=== PATIENT | male | born 1950 | race Caucasian/White ===

== ENCOUNTER 2020-07-02 08:10 | Outpatient (CLI) | payer MEDICARE | END 2020-07-02 08:11 | disposition home or self-care (01) | LOC: CSHWCC 08:10 | PROVIDERS: ATTEND Nurse Practitioner Family | DX: I87.332 Chronic venous hypertension (idiopathic) with ulcer and inflammation of left lower extremity (principal); L97.229 Non-pressure chronic ulcer of left calf with unspecified severity; L97.829 Non-pressure chronic ulcer of other part of left lower leg with unspecified severity; R60.0 Localized edema; E11.40 Type 2 diabetes mellitus with diabetic neuropathy, unspecified; I87.2 Venous insufficiency (chronic) (peripheral); L03.818 Cellulitis of other sites; B96.5 Pseudomonas (aeruginosa) (mallei) (pseudomallei) as the cause of diseases classified elsewhere | CPT/HCPCS: 97139; G0463; 99213 ==

== ENCOUNTER 2020-07-16 09:02 | Outpatient (CLI) | payer MEDICARE | END 2020-07-16 09:03 | disposition home or self-care (01) | LOC: CSHWCC 09:02 | PROVIDERS: ATTEND Nurse Practitioner Family | DX: I87.332 Chronic venous hypertension (idiopathic) with ulcer and inflammation of left lower extremity (principal); L97.229 Non-pressure chronic ulcer of left calf with unspecified severity; L97.829 Non-pressure chronic ulcer of other part of left lower leg with unspecified severity; E11.40 Type 2 diabetes mellitus with diabetic neuropathy, unspecified; E66.01 Morbid (severe) obesity due to excess calories; I87.2 Venous insufficiency (chronic) (peripheral); I89.0 Lymphedema, not elsewhere classified; L03.818 Cellulitis of other sites; B96.5 Pseudomonas (aeruginosa) (mallei) (pseudomallei) as the cause of diseases classified elsewhere; L60.1 Onycholysis; R60.0 Localized edema | CPT/HCPCS: 29581; 97139; G0463; 99213 ==

== ENCOUNTER 2020-07-30 08:21 | Outpatient (CLI) | payer MEDICARE | END 2020-07-30 08:22 | disposition home or self-care (01) | LOC: CSHWCC 08:21 | PROVIDERS: ATTEND Nurse Practitioner Family | DX: I87.332 Chronic venous hypertension (idiopathic) with ulcer and inflammation of left lower extremity (principal); L97.229 Non-pressure chronic ulcer of left calf with unspecified severity; L97.829 Non-pressure chronic ulcer of other part of left lower leg with unspecified severity; R60.0 Localized edema; E11.40 Type 2 diabetes mellitus with diabetic neuropathy, unspecified; I87.2 Venous insufficiency (chronic) (peripheral); L03.818 Cellulitis of other sites; B96.5 Pseudomonas (aeruginosa) (mallei) (pseudomallei) as the cause of diseases classified elsewhere | CPT/HCPCS: 29581; 99213; G0463 ==

== ENCOUNTER 2020-08-04 12:28 | Outpatient (CLI) | payer MEDICARE | END 2020-08-04 12:29 | disposition home or self-care (01) | LOC: CSHWCC 12:28 | PROVIDERS: ATTEND Nurse Practitioner Family | DX: I87.332 Chronic venous hypertension (idiopathic) with ulcer and inflammation of left lower extremity (principal); L97.229 Non-pressure chronic ulcer of left calf with unspecified severity; L97.829 Non-pressure chronic ulcer of other part of left lower leg with unspecified severity; R60.0 Localized edema; E11.40 Type 2 diabetes mellitus with diabetic neuropathy, unspecified; I87.2 Venous insufficiency (chronic) (peripheral); L03.818 Cellulitis of other sites; B96.5 Pseudomonas (aeruginosa) (mallei) (pseudomallei) as the cause of diseases classified elsewhere | CPT/HCPCS: 29581; 97139; G0463; 99213 ==

== ENCOUNTER 2020-08-06 08:25 | Outpatient (CLI) | payer MEDICARE | END 2020-08-06 08:26 | disposition home or self-care (01) | LOC: CSHWCC 08:25 | PROVIDERS: ATTEND Nurse Practitioner Family | DX: I87.332 Chronic venous hypertension (idiopathic) with ulcer and inflammation of left lower extremity (principal); L97.229 Non-pressure chronic ulcer of left calf with unspecified severity; L97.829 Non-pressure chronic ulcer of other part of left lower leg with unspecified severity; R60.0 Localized edema; E11.40 Type 2 diabetes mellitus with diabetic neuropathy, unspecified; I87.2 Venous insufficiency (chronic) (peripheral); L03.818 Cellulitis of other sites; B96.5 Pseudomonas (aeruginosa) (mallei) (pseudomallei) as the cause of diseases classified elsewhere | CPT/HCPCS: 29581; 97139; G0463; 99213 ==

== ENCOUNTER 2020-08-08 13:06 | Outpatient (CLI) | payer MEDICARE | END 2020-08-08 13:07 | disposition home or self-care (01) | LOC: CSHWCC 13:06 | PROVIDERS: ATTEND Nurse Practitioner Family | DX: I87.332 Chronic venous hypertension (idiopathic) with ulcer and inflammation of left lower extremity (principal); E11.622 Type 2 diabetes mellitus with other skin ulcer; L97.229 Non-pressure chronic ulcer of left calf with unspecified severity; L97.829 Non-pressure chronic ulcer of other part of left lower leg with unspecified severity; E11.40 Type 2 diabetes mellitus with diabetic neuropathy, unspecified; I87.2 Venous insufficiency (chronic) (peripheral); L03.818 Cellulitis of other sites; B96.5 Pseudomonas (aeruginosa) (mallei) (pseudomallei) as the cause of diseases classified elsewhere; R60.0 Localized edema | CPT/HCPCS: 29581; 97139; G0463; 99213 ==

== ENCOUNTER 2020-08-13 09:00 | Outpatient (CLI) | payer MEDICARE | END 2020-08-13 09:01 | disposition home or self-care (01) | LOC: CSHWCC 09:00 | PROVIDERS: ATTEND Nurse Practitioner Family | DX: I87.332 Chronic venous hypertension (idiopathic) with ulcer and inflammation of left lower extremity (principal); I87.331 Chronic venous hypertension (idiopathic) with ulcer and inflammation of right lower extremity; L97.812 Non-pressure chronic ulcer of other part of right lower leg with fat layer exposed; L97.222 Non-pressure chronic ulcer of left calf with fat layer exposed; L97.822 Non-pressure chronic ulcer of other part of left lower leg with fat layer exposed; I89.0 Lymphedema, not elsewhere classified; L03.818 Cellulitis of other sites; B96.5 Pseudomonas (aeruginosa) (mallei) (pseudomallei) as the cause of diseases classified elsewhere; L60.1 Onycholysis; E66.01 Morbid (severe) obesity due to excess calories; I87.2 Venous insufficiency (chronic) (peripheral) | CPT/HCPCS: 29581; 99214; G0463 ==

== ENCOUNTER 2020-08-20 07:37 | Outpatient (CLI) | payer MEDICARE | END 2020-08-20 07:38 | disposition home or self-care (01) | LOC: CSHWCC 07:37 | PROVIDERS: ATTEND Nurse Practitioner Family | DX: I87.332 Chronic venous hypertension (idiopathic) with ulcer and inflammation of left lower extremity (principal); L97.229 Non-pressure chronic ulcer of left calf with unspecified severity; L97.829 Non-pressure chronic ulcer of other part of left lower leg with unspecified severity; I87.2 Venous insufficiency (chronic) (peripheral); R60.0 Localized edema; L03.818 Cellulitis of other sites; E11.40 Type 2 diabetes mellitus with diabetic neuropathy, unspecified; B96.5 Pseudomonas (aeruginosa) (mallei) (pseudomallei) as the cause of diseases classified elsewhere | CPT/HCPCS: 29581; 99214; G0463 ==

== ENCOUNTER 2020-08-27 09:54 | Outpatient (CLI) | payer MEDICARE | END 2020-08-27 09:55 | disposition home or self-care (01) | LOC: CSHWCC 09:54 | PROVIDERS: ATTEND Nurse Practitioner Family | DX: I87.332 Chronic venous hypertension (idiopathic) with ulcer and inflammation of left lower extremity (principal); I87.311 Chronic venous hypertension (idiopathic) with ulcer of right lower extremity; I87.2 Venous insufficiency (chronic) (peripheral); E11.622 Type 2 diabetes mellitus with other skin ulcer; L97.222 Non-pressure chronic ulcer of left calf with fat layer exposed; L97.212 Non-pressure chronic ulcer of right calf with fat layer exposed; L97.822 Non-pressure chronic ulcer of other part of left lower leg with fat layer exposed; E11.40 Type 2 diabetes mellitus with diabetic neuropathy, unspecified; E66.01 Morbid (severe) obesity due to excess calories; I89.0 Lymphedema, not elsewhere classified; L03.818 Cellulitis of other sites; B96.5 Pseudomonas (aeruginosa) (mallei) (pseudomallei) as the cause of diseases classified elsewhere; L60.1 Onycholysis; R60.0 Localized edema; Z91.128 Patient's intentional underdosing of medication regimen for other reason | CPT/HCPCS: 29581; 97139 ×2; G0463 ×2; 99211; 99213 ==

== ENCOUNTER 2020-09-11 09:14 | Outpatient (CLI) | payer MEDICARE | END 2020-09-11 09:15 | disposition home or self-care (01) | LOC: CSHWCC 09:14 | PROVIDERS: ATTEND Nurse Practitioner Family | DX: I87.332 Chronic venous hypertension (idiopathic) with ulcer and inflammation of left lower extremity (principal); I87.2 Venous insufficiency (chronic) (peripheral); E11.622 Type 2 diabetes mellitus with other skin ulcer; L97.229 Non-pressure chronic ulcer of left calf with unspecified severity; L97.829 Non-pressure chronic ulcer of other part of left lower leg with unspecified severity; E11.40 Type 2 diabetes mellitus with diabetic neuropathy, unspecified; L03.818 Cellulitis of other sites; B96.5 Pseudomonas (aeruginosa) (mallei) (pseudomallei) as the cause of diseases classified elsewhere; R60.0 Localized edema | CPT/HCPCS: 29581; 97139; G0463; 99213 ==

== ENCOUNTER 2020-11-27 08:37 | Outpatient (CLI) | payer MEDICARE | END 2020-11-27 08:38 | disposition home or self-care (01) | LOC: CSHWCC 08:37 | PROVIDERS: ATTEND Nurse Practitioner Family | DX: I87.332 Chronic venous hypertension (idiopathic) with ulcer and inflammation of left lower extremity (principal); I87.311 Chronic venous hypertension (idiopathic) with ulcer of right lower extremity; I87.2 Venous insufficiency (chronic) (peripheral); L97.812 Non-pressure chronic ulcer of other part of right lower leg with fat layer exposed; L97.222 Non-pressure chronic ulcer of left calf with fat layer exposed; L97.822 Non-pressure chronic ulcer of other part of left lower leg with fat layer exposed; E11.40 Type 2 diabetes mellitus with diabetic neuropathy, unspecified; I89.0 Lymphedema, not elsewhere classified; R60.0 Localized edema; L03.818 Cellulitis of other sites; B96.5 Pseudomonas (aeruginosa) (mallei) (pseudomallei) as the cause of diseases classified elsewhere; L60.1 Onycholysis; E66.01 Morbid (severe) obesity due to excess calories; Z91.128 Patient's intentional underdosing of medication regimen for other reason | CPT/HCPCS: 29581; 99213; G0463 ==

== ENCOUNTER 2020-12-05 08:23 | Outpatient (CLI) | payer MEDICARE | END 2020-12-05 08:24 | disposition home or self-care (01) | LOC: CSHWCC 08:23 | PROVIDERS: ATTEND Nurse Practitioner Family | DX: I87.311 Chronic venous hypertension (idiopathic) with ulcer of right lower extremity (principal); L97.812 Non-pressure chronic ulcer of other part of right lower leg with fat layer exposed; I87.332 Chronic venous hypertension (idiopathic) with ulcer and inflammation of left lower extremity; L97.222 Non-pressure chronic ulcer of left calf with fat layer exposed; L97.822 Non-pressure chronic ulcer of other part of left lower leg with fat layer exposed; L03.818 Cellulitis of other sites; B96.5 Pseudomonas (aeruginosa) (mallei) (pseudomallei) as the cause of diseases classified elsewhere; L60.1 Onycholysis; R60.0 Localized edema; E11.40 Type 2 diabetes mellitus with diabetic neuropathy, unspecified; E66.01 Morbid (severe) obesity due to excess calories; I87.2 Venous insufficiency (chronic) (peripheral); I89.0 Lymphedema, not elsewhere classified; Z91.128 Patient's intentional underdosing of medication regimen for other reason | CPT/HCPCS: 29581; 99213; G0463 ==

== ENCOUNTER 2020-12-12 08:47 | Outpatient (CLI) | payer MEDICARE | END 2020-12-12 08:48 | disposition home or self-care (01) | LOC: CSHWCC 08:47 | PROVIDERS: ATTEND Nurse Practitioner Family | DX: I87.332 Chronic venous hypertension (idiopathic) with ulcer and inflammation of left lower extremity (principal); I87.311 Chronic venous hypertension (idiopathic) with ulcer of right lower extremity; I87.2 Venous insufficiency (chronic) (peripheral); E11.622 Type 2 diabetes mellitus with other skin ulcer; L97.812 Non-pressure chronic ulcer of other part of right lower leg with fat layer exposed; L97.822 Non-pressure chronic ulcer of other part of left lower leg with fat layer exposed; L03.818 Cellulitis of other sites; E11.40 Type 2 diabetes mellitus with diabetic neuropathy, unspecified; B96.5 Pseudomonas (aeruginosa) (mallei) (pseudomallei) as the cause of diseases classified elsewhere; L60.1 Onycholysis; R60.0 Localized edema; E66.01 Morbid (severe) obesity due to excess calories; Z91.128 Patient's intentional underdosing of medication regimen for other reason | CPT/HCPCS: 29581; 97139; G0463; 99214 ==

== ENCOUNTER 2021-01-22 10:32 | Outpatient (CLI) | payer MEDICARE | END 2021-01-22 10:33 | disposition home or self-care (01) | LOC: CSHWCC 10:32 | PROVIDERS: ATTEND Nurse Practitioner Family | DX: I87.333 Chronic venous hypertension (idiopathic) with ulcer and inflammation of bilateral lower extremity (principal); E11.621 Type 2 diabetes mellitus with foot ulcer; E11.622 Type 2 diabetes mellitus with other skin ulcer; L97.812 Non-pressure chronic ulcer of other part of right lower leg with fat layer exposed; L97.222 Non-pressure chronic ulcer of left calf with fat layer exposed; L97.422 Non-pressure chronic ulcer of left heel and midfoot with fat layer exposed; L97.822 Non-pressure chronic ulcer of other part of left lower leg with fat layer exposed; I89.0 Lymphedema, not elsewhere classified; E11.40 Type 2 diabetes mellitus with diabetic neuropathy, unspecified; L03.818 Cellulitis of other sites; R60.0 Localized edema; B96.5 Pseudomonas (aeruginosa) (mallei) (pseudomallei) as the cause of diseases classified elsewhere; L60.1 Onycholysis; E66.01 Morbid (severe) obesity due to excess calories; Z91.128 Patient's intentional underdosing of medication regimen for other reason | CPT/HCPCS: 29581; 97139; G0463; 99214 ==

== ENCOUNTER 2021-01-27 15:50 | Inpatient (IN) | payer MEDICARE ==
[2021-01-27] MEDS ORDERED: Cefepime 2 GM VIAL ONE (16:36)
[2021-01-27 16:43] LABS: #Basophils 0.1 10x3/uL (0.0-0.2); #Eosinphils 0.3 10x3/uL (0.0-0.5); #Monocytes 0.6 10x3/uL (0.0-1.1); #Neutrophils 7.3 10x3/uL (1.5-8.4); %Basophils 0.6 % (0.0-2.0); %Lymphocytes 13.9 % (18.0-47.0); %Monocytes 6.3 % (0.0-10.0); %Neutrophils 75.7 % (40.0-75.0); Hemoglobin 11.8 g/dL (13.5-17.5); Mean Corpuscular HGB CONC 32.2 g/dL (32.0-36.0); Mean Corpuscular Hemoglobin 27.8 pg (27.0-33.0); Mean Corpuscular Volume 86.4 fl (81.2-95.1); Mean Platelet Volume 9.4 fl (7.4-10.4); Platelet Count 622 10x3/uL (150-450); RBC Distribution Width 14.1 % (11.5-14.5); Red Blood Cell (RBC) Count 4.25 10x6/uL (4.32-5.72); White Blood Cell (WBC) Count 9.7 10x3/uL (3.5-10.5)
[2021-01-27 16:56] LABS: ALT (SGPT) 42 U/L (8-55); AST (SGOT) 52 U/L (5-34); Albumin 3.6 g/dL (3.4-4.8); Alkaline Phosphatase 75 U/L (40-110); Anion Gap 17 mmol/L (10-20); BUN (Urea Nitrogen) 28 mg/dL (8.4-25.7); Bilirubin, Total 0.3 mg/dL (0.2-1.2); Calc. Creatinine Clearance 0 mL/min (70-130); Calcium 9.4 mg/dL (7.8-10.44); Carbon Dioxide 22 mmol/L (23-31); Chloride 102 mmol/L (98-107); Globulin 4.6 g/dL (2.4-3.5); Glucose 73 mg/dL (83-110); Potassium 4.1 mmol/L (3.5-5.1); Protein, Total 8.2 g/dL (5.8-8.1); Sodium 137 mmol/L (136-145)
[2021-01-27] MEDS ORDERED: Morphine 4 MG/ML VIAL ONE (18:36)
[2021-01-27] MEDS ORDERED: Bisacodyl 5 MG TAB PO PRN (19:24)
[2021-01-27] MEDS ORDERED: Zolpidem Tartrate 5 MG TAB PO PRN (19:24)
[2021-01-27] MEDS ORDERED: Dextrose 5% in Water 1,000 ML IV PRN (19:24)
[2021-01-27] MEDS ORDERED: HumaLOG 300 UNITS/3 ML VIAL SC PRN (19:24)
[2021-01-27] MEDS ORDERED: Senokot S 8.6-50 MG TAB PO PRN (19:24)
[2021-01-27] MEDS ORDERED: Guaifenesin DM 100-10/5 ML UDCUP PO PRN (19:24)
[2021-01-27] MEDS ORDERED: Calcium Carbonate 500 MG ChewTAB PO PRN (19:24)
[2021-01-27] MEDS ORDERED: Ondansetron PF 4 MG/2 ML Vial IVP PRN (19:24)
[2021-01-27] MEDS ORDERED: Gabapentin 300 MG CAP PO SCH (21:45)
[2021-01-27] MEDS ORDERED: Morphine ER 15 MG TAB PO SCH (21:45)
[2021-01-27] MEDS ORDERED: traZODone HCl 50 MG TAB PO SCH (21:45)
[2021-01-27 21:47] VITALS: BMI 44.6
[2021-01-27] MEDS ORDERED: FLU VACC QS2021-22(65YR UP)/PF 240 MCG/0.7 ML SYRINGE IM ONE (22:15)
[2021-01-27] MEDS ORDERED: VANCOMYCIN 1.75 GM/350 ML BAG 1.75 GM in Premix Bag 1 BAG IVPB SCH (22:30)
[2021-01-28] MEDS: Dextrose 50% Abboject 50 ML SYRINGE SLOW IVP PRN ×2 (00:41→17:01)
[2021-01-28] MEDS ORDERED: Haloperidol Lactate 5 MG/ML VIAL ONE (01:04)
[2021-01-28] MEDS ORDERED: Haloperidol Lactate 5 MG/ML VIAL IM SCH (01:15)
[2021-01-28 01:34] LABS: Bilirubin Neg (Negative); Blood, Urine Negative (Negative); Clarity Clear (Clear); Glucose, Urine (Dipstick) Normal (Negative); Ketone, Urine Negative (Negative); Leukocyte Negative (Negative); Nitrite Negative (Negative); Protein, Urine (Dipstick) 15 mg/dl (Neg-Trace); Specific Gravity, Urine 1.015 (1.002-1.036); Urobilinogen Normal mg/dL (Less than 2)
[2021-01-28] MEDS: Acetaminophen 325 MG TAB PO PRN (01:37)
[2021-01-28 01:59] LABS: Bacteria/HPF None Seen HPF (None Seen); RBC/HPF 0-3 HPF (0-3); Squamous Epithelial None Seen HPF (0-3); WBC/HPF None Seen HPF (0-3)
[2021-01-28 05:20] LABS: #Eosinphils 0.3 10x3/uL (0.0-0.5); #Monocytes 0.6 10x3/uL (0.0-1.1); #Neutrophils 7.3 10x3/uL (1.5-8.4); %Basophils 0.5 % (0.0-2.0); %Eosinophils 3.4 % (0.0-6.0); %Lymphocytes 7.3 % (18.0-47.0); %Monocytes 6.3 % (0.0-10.0); %Neutrophils 81.9 % (40.0-75.0); Hemoglobin 10.1 g/dL (13.5-17.5); Mean Corpuscular HGB CONC 32.4 g/dL (32.0-36.0); Mean Corpuscular Hemoglobin 27.5 pg (27.0-33.0); Mean Platelet Volume 9.5 fl (7.4-10.4); Platelet Count 545 10x3/uL (150-450); RBC Distribution Width 14.4 % (11.5-14.5); Red Blood Cell (RBC) Count 3.67 10x6/uL (4.32-5.72); White Blood Cell (WBC) Count 8.9 10x3/uL (3.5-10.5)
[2021-01-28 07:48] LABS: Base Excess (BEa) -1.2 mEq/L (-2.0 to +3.0); CO2 Tension 36.2 mmHg (35.0-45.0); Calcium, Ionized (arterial) 1.15 mmol/L (1.12-1.30); Carboxyhemoglobin (COHb) 0.1 gm% (0.0-3.0); Hemoglobin (Hb) 11.2 g/dL (14.0-18.0); O2 Tension (PaO2), arterial 72.9 mmHg (> 70.0); Potassium - ABG Lab 4.2 mmol/L (3.70-5.30); Puncture Site RRA; pH, Arterial 7.42 (7.35-7.45)
[2021-01-28] MEDS ORDERED: Glimepiride 2 MG TAB PO SCH (08:00)
[2021-01-28] MEDS: Lantus 1000 UNITS/10 ML VIAL SC SCH (09:08)
[2021-01-28] MEDS: Morphine 4 MG/ML VIAL SLOW IVP PRN (09:14)
[2021-01-28] MEDS: Morphine ER 15 MG TAB PO SCH ×2 (09:19→20:43)
[2021-01-28] MEDS: Multivit, Therapeutic 1 TAB PO SCH (09:20)
[2021-01-28] MEDS: Gabapentin 300 MG CAP PO SCH ×2 (09:20→20:43)
[2021-01-28] MEDS: Cefepime 1 GM in Sodium Chloride 0.9% 100 ML IVPB SCH ×2 (09:21→20:42)
[2021-01-28] MEDS: Enoxaparin Sodium 40 MG/0.4 ML SYRINGE SC SCH (09:21)
[2021-01-28] MEDS: Furosemide 40 MG/4 ML VIAL SLOW IVP SCH ×2 (09:21→17:22)
[2021-01-28 11:38] LABS: Hemoglobin A1c 5.7 % (4.0-6.0)
[2021-01-28 15:32] LABS: SARS-CoV-2 PCR by NAA Not Detected (NotDetected)
[2021-01-28] MEDS ORDERED: Lorazepam 2 MG/ML VIAL IM PRN (16:49)
[2021-01-28] MEDS ORDERED: Lorazepam 1 MG TAB PO PRN (16:49)
[2021-01-28] MEDS ORDERED: Ondansetron ODT 4 MG TAB PO PRN (16:49)
[2021-01-28] MEDS ORDERED: Folic Acid 1 MG TAB PO SCH (17:00)
[2021-01-28] MEDS ORDERED: Electrolyte Replacement Protocol 1 EACH FS PRN (17:00)
[2021-01-28] MEDS ORDERED: Multivit, Therapeutic 1 TAB PO SCH (17:00)
[2021-01-28 17:17] LABS: #Basophils 0.1 10x3/uL (0.0-0.2); #Eosinphils 0.3 10x3/uL (0.0-0.5); #Monocytes 0.7 10x3/uL (0.0-1.1); #Neutrophils 5.7 10x3/uL (1.5-8.4); %Basophils 0.8 % (0.0-2.0); %Eosinophils 3.5 % (0.0-6.0); %Lymphocytes 13.1 % (18.0-47.0); %Monocytes 8.7 % (0.0-10.0); %Neutrophils 73.4 % (40.0-75.0); Mean Corpuscular HGB CONC 32.6 g/dL (32.0-36.0); Mean Corpuscular Hemoglobin 27.4 pg (27.0-33.0); Mean Corpuscular Volume 84.1 fl (81.2-95.1); Mean Platelet Volume 9.1 fl (7.4-10.4); Platelet Count 479 10x3/uL (150-450); RBC Distribution Width 14.3 % (11.5-14.5); Red Blood Cell (RBC) Count 3.65 10x6/uL (4.32-5.72); White Blood Cell (WBC) Count 7.8 10x3/uL (3.5-10.5)
[2021-01-28] MEDS: Famotidine 20 MG TAB PO SCH (17:41)
[2021-01-28] MEDS: Thiamine HCl 200 MG/2 ML VIAL SLOW IVP SCH (17:43)
[2021-01-28] MEDS: Lorazepam 1 MG TAB PO SCH ×2 (18:13→23:05)
[2021-01-28] MEDS: traZODone HCl 50 MG TAB PO SCH (21:52)
[2021-01-28] MEDS: VANCOMYCIN 2 GRAM/400 ML BAG 2 GM in Premix Bag 1 BAG IVPB SCH (23:06)
[2021-01-29] MEDS: Lorazepam 1 MG TAB PO SCH ×3 (05:33→17:38)
[2021-01-29] MEDS: Gabapentin 300 MG CAP PO SCH ×2 (10:23→20:06)
[2021-01-29] MEDS: Morphine ER 15 MG TAB PO SCH ×2 (10:23→20:05)
[2021-01-29] MEDS: Multivit, Therapeutic 1 TAB PO SCH ×2 (10:24→12:59)
[2021-01-29] MEDS: Folic Acid 1 MG TAB PO SCH (10:24)
[2021-01-29] MEDS: Famotidine 20 MG TAB PO SCH (10:25)
[2021-01-29] MEDS: Morphine 4 MG/ML VIAL SLOW IVP PRN (12:52)
[2021-01-29] MEDS: Cefepime 1 GM in Sodium Chloride 0.9% 100 ML IVPB SCH ×2 (12:54→20:07)
[2021-01-29] MEDS: Furosemide 40 MG/4 ML VIAL SLOW IVP SCH (13:18)
[2021-01-29] MEDS: Lantus 1000 UNITS/10 ML VIAL SC SCH (13:19)
[2021-01-29] MEDS: Enoxaparin Sodium 40 MG/0.4 ML SYRINGE SC SCH (13:19)
[2021-01-29] MEDS ORDERED: Lorazepam 1 MG TAB PO PRN (16:49)
[2021-01-29] MEDS: Thiamine HCl 200 MG/2 ML VIAL SLOW IVP SCH (17:38)
[2021-01-29] MEDS: traZODone HCl 50 MG TAB PO SCH (20:07)
[2021-01-29] MEDS: VANCOMYCIN 2 GRAM/400 ML BAG 2 GM in Premix Bag 1 BAG IVPB SCH (23:33)
[2021-01-29] MEDS: Acetaminophen 325 MG TAB PO PRN (23:33)
[2021-01-29 23:34] LABS: Vancomycin, Trough 17.5 ug/mL
[2021-01-30] MEDS: Lorazepam 1 MG TAB PO SCH ×3 (00:18→11:30)
[2021-01-30] MEDS: Morphine 4 MG/ML VIAL SLOW IVP PRN (01:55)
[2021-01-30 04:20] LABS: #Basophils 0.1 10x3/uL (0.0-0.2); #Eosinphils 0.3 10x3/uL (0.0-0.5); #Monocytes 0.7 10x3/uL (0.0-1.1); %Basophils 0.8 % (0.0-2.0); %Eosinophils 3.9 % (0.0-6.0); %Lymphocytes 18.2 % (18.0-47.0); %Monocytes 9.3 % (0.0-10.0); %Neutrophils 67.1 % (40.0-75.0); Hemoglobin 10.3 g/dL (13.5-17.5); Mean Corpuscular HGB CONC 31.7 g/dL (32.0-36.0); Mean Corpuscular Hemoglobin 27.4 pg (27.0-33.0); Mean Corpuscular Volume 86.4 fl (81.2-95.1); Mean Platelet Volume 9.3 fl (7.4-10.4); Platelet Count 484 10x3/uL (150-450); RBC Distribution Width 14.3 % (11.5-14.5); Red Blood Cell (RBC) Count 3.76 10x6/uL (4.32-5.72); White Blood Cell (WBC) Count 7.4 10x3/uL (3.5-10.5)
[2021-01-30 04:43] LABS: Anion Gap 16 mmol/L (10-20); BUN (Urea Nitrogen) 16 mg/dL (8.4-25.7); Calc. Creatinine Clearance 108 mL/min (70-130); Calcium 8.1 mg/dL (7.8-10.44); Carbon Dioxide 19 mmol/L (23-31); Chloride 110 mmol/L (98-107); Glucose 98 mg/dL (83-110); Potassium 4.2 mmol/L (3.5-5.1); Sodium 141 mmol/L (136-145)
[2021-01-30] MEDS: Cefepime 1 GM in Sodium Chloride 0.9% 100 ML IVPB SCH ×2 (09:20→21:08)
[2021-01-30] MEDS: Enoxaparin Sodium 40 MG/0.4 ML SYRINGE SC SCH (09:20)
[2021-01-30] MEDS: Gabapentin 300 MG CAP PO SCH ×2 (09:20→21:09)
[2021-01-30] MEDS: Famotidine 20 MG TAB PO SCH (09:21)
[2021-01-30] MEDS: Folic Acid 1 MG TAB PO SCH (09:21)
[2021-01-30] MEDS: Multivit, Therapeutic 1 TAB PO SCH ×2 (09:21→09:22)
[2021-01-30] MEDS: Morphine ER 15 MG TAB PO SCH ×2 (09:21→21:10)
[2021-01-30] MEDS: Lantus 1000 UNITS/10 ML VIAL SC SCH (09:22)
[2021-01-30] MEDS: Furosemide 40 MG/4 ML VIAL SLOW IVP SCH (09:22)
[2021-01-30] MEDS ORDERED: Lorazepam 1 MG TAB PO PRN (16:49)
[2021-01-30] MEDS: Lorazepam 0.5 MG TAB PO SCH (17:15)
[2021-01-30] MEDS: Thiamine HCl 200 MG/2 ML VIAL SLOW IVP SCH (17:15)
[2021-01-30 18:37] LABS: Hep C IgG Ab Non-Reactive (NonReactive); Hep C Index 0.07 S/CO (0-0.79)
[2021-01-30] MEDS: traZODone HCl 50 MG TAB PO SCH (21:09)
[2021-01-31] MEDS: Lorazepam 0.5 MG TAB PO SCH ×3 (00:45→11:38)
[2021-01-31] MEDS: HYDROcodone/Acetaminophen 5/325 mg Tablet PO PRN ×2 (03:11→08:58)
[2021-01-31 04:36] LABS: Anion Gap 15 mmol/L (10-20); BUN (Urea Nitrogen) 17 mg/dL (8.4-25.7); Calc. Creatinine Clearance 111 mL/min (70-130); Calcium 8.3 mg/dL (7.8-10.44); Carbon Dioxide 23 mmol/L (23-31); Chloride 107 mmol/L (98-107); Glucose 98 mg/dL (83-110); Potassium 4.2 mmol/L (3.5-5.1); Sodium 141 mmol/L (136-145)
[2021-01-31] MEDS: Cefepime 2 GM in Sodium Chloride 0.9% 100 ML IVPB SCH ×2 (08:57→20:44)
[2021-01-31] MEDS: Furosemide 40 MG/4 ML VIAL SLOW IVP SCH (08:57)
[2021-01-31] MEDS: Enoxaparin Sodium 40 MG/0.4 ML SYRINGE SC SCH (08:57)
[2021-01-31] MEDS: Gabapentin 300 MG CAP PO SCH ×2 (08:58→20:45)
[2021-01-31] MEDS: Folic Acid 1 MG TAB PO SCH (08:58)
[2021-01-31] MEDS: Famotidine 20 MG TAB PO SCH (08:58)
[2021-01-31] MEDS: Morphine ER 15 MG TAB PO SCH ×2 (08:58→20:47)
[2021-01-31] MEDS: Multivit, Therapeutic 1 TAB PO SCH (08:58)
[2021-01-31] MEDS: Lantus 1000 UNITS/10 ML VIAL SC SCH (09:00)
[2021-01-31] MEDS: Thiamine 100 MG TAB PO SCH (18:13)
[2021-02-01] MEDS: traZODone HCl 50 MG TAB PO SCH ×2 (00:06→22:26)
[2021-02-01 04:22] LABS: Anion Gap 17 mmol/L (10-20); BUN (Urea Nitrogen) 17 mg/dL (8.4-25.7); Calc. Creatinine Clearance 110 mL/min (70-130); Calcium 8.6 mg/dL (7.8-10.44); Carbon Dioxide 21 mmol/L (23-31); Chloride 105 mmol/L (98-107); Glucose 89 mg/dL (83-110); Potassium 4.2 mmol/L (3.5-5.1); Sodium 139 mmol/L (136-145)
[2021-02-01] MEDS: Furosemide 40 MG/4 ML VIAL SLOW IVP SCH (08:35)
[2021-02-01] MEDS: Cefepime 2 GM in Sodium Chloride 0.9% 100 ML IVPB SCH ×2 (08:35→20:18)
[2021-02-01] MEDS: Folic Acid 1 MG TAB PO SCH (08:35)
[2021-02-01] MEDS: Lorazepam 0.5 MG TAB PO PRN (08:35)
[2021-02-01] MEDS ORDERED: Cefepime 2 GM VIAL ONE (08:35)
[2021-02-01] MEDS: Famotidine 20 MG TAB PO SCH (08:35)
[2021-02-01] MEDS: Enoxaparin Sodium 40 MG/0.4 ML SYRINGE SC SCH (08:35)
[2021-02-01] MEDS: Thiamine 100 MG TAB PO SCH (08:35)
[2021-02-01] MEDS: Gabapentin 300 MG CAP PO SCH ×2 (08:36→20:19)
[2021-02-01] MEDS: Multivit, Therapeutic 1 TAB PO SCH (08:36)
[2021-02-01] MEDS: HYDROcodone/Acetaminophen 5/325 mg Tablet PO PRN (08:36)
[2021-02-01] MEDS: Morphine ER 15 MG TAB PO SCH ×2 (08:36→20:19)
[2021-02-01] MEDS: Lantus 1000 UNITS/10 ML VIAL SC SCH (08:38)
[2021-02-02 05:32] LABS: Hemoglobin 11.4 g/dL (13.5-17.5); Mean Corpuscular HGB CONC 30.9 g/dL (32.0-36.0); Mean Corpuscular Hemoglobin 27.1 pg (27.0-33.0); Mean Corpuscular Volume 87.6 fl (81.2-95.1); Mean Platelet Volume 9.8 fl (7.4-10.4); Platelet Count 500 10x3/uL (150-450); RBC Distribution Width 14.5 % (11.5-14.5); Red Blood Cell (RBC) Count 4.21 10x6/uL (4.32-5.72); White Blood Cell (WBC) Count 8.4 10x3/uL (3.5-10.5)
[2021-02-02 06:05] LABS: Anion Gap 16 mmol/L (10-20); BUN (Urea Nitrogen) 19 mg/dL (8.4-25.7); Calc. Creatinine Clearance 106 mL/min (70-130); Calcium 8.5 mg/dL (7.8-10.44); Carbon Dioxide 23 mmol/L (23-31); Chloride 104 mmol/L (98-107); Glucose 101 mg/dL (83-110); Potassium 4.1 mmol/L (3.5-5.1); Sodium 139 mmol/L (136-145)
[2021-02-02] MEDS: Cefepime 2 GM in Sodium Chloride 0.9% 100 ML IVPB SCH ×2 (08:25→21:18)
[2021-02-02] MEDS: Multivit, Therapeutic 1 TAB PO SCH (08:25)
[2021-02-02] MEDS: Furosemide 40 MG/4 ML VIAL SLOW IVP SCH (08:25)
[2021-02-02] MEDS: Folic Acid 1 MG TAB PO SCH (08:25)
[2021-02-02] MEDS: Enoxaparin Sodium 40 MG/0.4 ML SYRINGE SC SCH (08:25)
[2021-02-02] MEDS: Famotidine 20 MG TAB PO SCH (08:26)
[2021-02-02] MEDS: Lorazepam 0.5 MG TAB PO PRN (08:26)
[2021-02-02] MEDS: Thiamine 100 MG TAB PO SCH (08:26)
[2021-02-02] MEDS: Morphine ER 15 MG TAB PO SCH ×2 (08:26→21:15)
[2021-02-02] MEDS: Gabapentin 300 MG CAP PO SCH ×3 (08:26→21:17)
[2021-02-02] MEDS: Lantus 1000 UNITS/10 ML VIAL SC SCH (08:27)
[2021-02-02] MEDS: traZODone HCl 50 MG TAB PO SCH (22:11)
[2021-02-03] MEDS: Morphine 4 MG/ML VIAL SLOW IVP PRN
[2021-02-03] MEDS: HYDROcodone/Acetaminophen 5/325 mg Tablet PO PRN (06:39)
[2021-02-03] MEDS: Cefepime 2 GM in Sodium Chloride 0.9% 100 ML IVPB SCH (08:36)
[2021-02-03] MEDS: Famotidine 20 MG TAB PO SCH (08:37)
[2021-02-03] MEDS: Folic Acid 1 MG TAB PO SCH (08:37)
[2021-02-03] MEDS: Furosemide 40 MG/4 ML VIAL SLOW IVP SCH (08:37)
[2021-02-03] MEDS: Enoxaparin Sodium 40 MG/0.4 ML SYRINGE SC SCH (08:37)
[2021-02-03] MEDS: Gabapentin 300 MG CAP PO SCH (08:38)
[2021-02-03] MEDS: Multivit, Therapeutic 1 TAB PO SCH (08:38)
[2021-02-03] MEDS: Morphine ER 15 MG TAB PO SCH (08:39)
[2021-02-03] MEDS: Lantus 1000 UNITS/10 ML VIAL SC SCH (08:44)
[2021-02-03 08:57] VITALS: BP 118/57; TEMP 98.2
== END 2021-02-03 10:27 | disposition home or self-care (01) | DRG 872 ==
LOC: CSHERS 15:50 → CSHTELE 21:27
PROVIDERS: ADMIT Student in an Organized Health Care Education/Training Program; ATTEND Internal Medicine
DX: A41.9 Sepsis, unspecified organism (principal); L03.116 Cellulitis of left lower limb; L03.115 Cellulitis of right lower limb; F11.20 Opioid dependence, uncomplicated; I83.218 Varicose veins of right lower extremity with both ulcer of other part of lower extremity and inflammation; I83.228 Varicose veins of left lower extremity with both ulcer of other part of lower extremity and inflammation; L97.819 Non-pressure chronic ulcer of other part of right lower leg with unspecified severity; L97.828 Non-pressure chronic ulcer of other part of left lower leg with other specified severity; N17.9 Acute kidney failure, unspecified; Z68.41 Body mass index [BMI] 40.0-44.9, adult; Z20.822 Contact with and (suspected) exposure to COVID-19; E11.22 Type 2 diabetes mellitus with diabetic chronic kidney disease; I12.9 Hypertensive chronic kidney disease with stage 1 through stage 4 chronic kidney disease, or unspecified chronic kidney disease; N18.31 Chronic kidney disease, stage 3a; Z78.9 Other specified health status; E66.01 Morbid (severe) obesity due to excess calories; E11.51 Type 2 diabetes mellitus with diabetic peripheral angiopathy without gangrene; E11.65 Type 2 diabetes mellitus with hyperglycemia; E11.40 Type 2 diabetes mellitus with diabetic neuropathy, unspecified; Z87.891 Personal history of nicotine dependence; F10.20 Alcohol dependence, uncomplicated; F41.9 Anxiety disorder, unspecified; F32.A Depression, unspecified; Z79.84 Long term (current) use of oral hypoglycemic drugs; Z79.4 Long term (current) use of insulin; Z79.891 Long term (current) use of opiate analgesic; Z79.899 Other long term (current) drug therapy
CPT/HCPCS: 36415; 36416; 36600; 80048; 80053; 80202; 81001; 82805; 83036; 83605; 83880; 85025; 85027; 85652; 86140; 86803; 87040; 87086; 93306; 96365; 96366; 96375; J0692; J1630; J1650; J1815; J1940; J2270; J3370; J3411; J3490; U0003; U0005

== ENCOUNTER 2021-02-06 09:57 | Outpatient (CLI) | payer MEDICARE | END 2021-02-06 09:58 | disposition home or self-care (01) | LOC: CSHWCC 09:57 | PROVIDERS: ATTEND Nurse Practitioner Family | DX: I87.332 Chronic venous hypertension (idiopathic) with ulcer and inflammation of left lower extremity (principal); I87.331 Chronic venous hypertension (idiopathic) with ulcer and inflammation of right lower extremity; I87.311 Chronic venous hypertension (idiopathic) with ulcer of right lower extremity; L97.812 Non-pressure chronic ulcer of other part of right lower leg with fat layer exposed; L97.222 Non-pressure chronic ulcer of left calf with fat layer exposed; L97.422 Non-pressure chronic ulcer of left heel and midfoot with fat layer exposed; I89.0 Lymphedema, not elsewhere classified; L03.818 Cellulitis of other sites; B96.5 Pseudomonas (aeruginosa) (mallei) (pseudomallei) as the cause of diseases classified elsewhere; L60.1 Onycholysis; R60.0 Localized edema; I87.2 Venous insufficiency (chronic) (peripheral); E11.40 Type 2 diabetes mellitus with diabetic neuropathy, unspecified; E66.01 Morbid (severe) obesity due to excess calories; Z91.128 Patient's intentional underdosing of medication regimen for other reason | CPT/HCPCS: 29581; 97139; G0463; 99213; 99214 ==

== ENCOUNTER 2021-02-10 08:19 | Outpatient (CLI) | payer MEDICARE | END 2021-02-10 08:20 | disposition home or self-care (01) | LOC: CSHWCC 08:19 | PROVIDERS: ATTEND Nurse Practitioner Family | DX: I87.333 Chronic venous hypertension (idiopathic) with ulcer and inflammation of bilateral lower extremity (principal); I87.2 Venous insufficiency (chronic) (peripheral); E11.621 Type 2 diabetes mellitus with foot ulcer; E11.622 Type 2 diabetes mellitus with other skin ulcer; L97.812 Non-pressure chronic ulcer of other part of right lower leg with fat layer exposed; L97.222 Non-pressure chronic ulcer of left calf with fat layer exposed; L97.422 Non-pressure chronic ulcer of left heel and midfoot with fat layer exposed; L97.822 Non-pressure chronic ulcer of other part of left lower leg with fat layer exposed; E11.40 Type 2 diabetes mellitus with diabetic neuropathy, unspecified; I89.0 Lymphedema, not elsewhere classified; R60.0 Localized edema; L03.818 Cellulitis of other sites; L60.1 Onycholysis; B96.5 Pseudomonas (aeruginosa) (mallei) (pseudomallei) as the cause of diseases classified elsewhere; E66.01 Morbid (severe) obesity due to excess calories; Z91.128 Patient's intentional underdosing of medication regimen for other reason | CPT/HCPCS: 29581; 97139; G0463; 99213 ==

== ENCOUNTER 2021-02-12 09:30 | Outpatient (CLI) | payer MEDICARE | END 2021-02-12 09:31 | disposition home or self-care (01) | LOC: CSHWCC 09:30 | PROVIDERS: ATTEND Nurse Practitioner Family | DX: I87.331 Chronic venous hypertension (idiopathic) with ulcer and inflammation of right lower extremity (principal); I87.332 Chronic venous hypertension (idiopathic) with ulcer and inflammation of left lower extremity; I87.311 Chronic venous hypertension (idiopathic) with ulcer of right lower extremity; L97.812 Non-pressure chronic ulcer of other part of right lower leg with fat layer exposed; L97.222 Non-pressure chronic ulcer of left calf with fat layer exposed; L97.422 Non-pressure chronic ulcer of left heel and midfoot with fat layer exposed; L97.822 Non-pressure chronic ulcer of other part of left lower leg with fat layer exposed; R60.0 Localized edema; E11.40 Type 2 diabetes mellitus with diabetic neuropathy, unspecified; E66.01 Morbid (severe) obesity due to excess calories; I87.2 Venous insufficiency (chronic) (peripheral); I89.0 Lymphedema, not elsewhere classified; B96.5 Pseudomonas (aeruginosa) (mallei) (pseudomallei) as the cause of diseases classified elsewhere; L60.1 Onycholysis; L03.818 Cellulitis of other sites; Z91.128 Patient's intentional underdosing of medication regimen for other reason | CPT/HCPCS: 36416 ==

== ENCOUNTER 2021-02-12 12:31 | Inpatient (IN) | payer MEDICARE ==
[2021-02-12 13:40] LABS: ALT (SGPT) 20 U/L (8-55); AST (SGOT) 30 U/L (5-34); Albumin 3.2 g/dL (3.4-4.8); Alkaline Phosphatase 75 U/L (40-110); Anion Gap 15 mmol/L (10-20); BUN (Urea Nitrogen) 37 mg/dL (8.4-25.7); Bilirubin, Total 0.3 mg/dL (0.2-1.2); CK (CPK) 352 U/L (30-200); Calc. Creatinine Clearance 0 mL/min (70-130); Calcium 8.3 mg/dL (7.8-10.44); Carbon Dioxide 20 mmol/L (23-31); Chloride 108 mmol/L (98-107); Globulin 3.3 g/dL (2.4-3.5); Glucose 158 mg/dL (83-110); Protein, Total 6.5 g/dL (5.8-8.1); Sodium 138 mmol/L (136-145)
[2021-02-12 13:43] LABS: #Basophils 0.1 10x3/uL (0.0-0.2); #Eosinphils 0.3 10x3/uL (0.0-0.5); #Monocytes 0.6 10x3/uL (0.0-1.1); #Neutrophils 5.4 10x3/uL (1.5-8.4); %Basophils 0.8 % (0.0-2.0); %Eosinophils 3.7 % (0.0-6.0); %Monocytes 8.1 % (0.0-10.0); Hemoglobin 10.6 g/dL (13.5-17.5); Mean Corpuscular HGB CONC 30.9 g/dL (32.0-36.0); Mean Corpuscular Hemoglobin 27.4 pg (27.0-33.0); Mean Corpuscular Volume 88.6 fl (81.2-95.1); Mean Platelet Volume 10.2 fl (7.4-10.4); Platelet Count 441 10x3/uL (150-450); RBC Distribution Width 15.1 % (11.5-14.5); Red Blood Cell (RBC) Count 3.87 10x6/uL (4.32-5.72); White Blood Cell (WBC) Count 7.8 10x3/uL (3.5-10.5)
[2021-02-12 15:41] LABS: Bilirubin Neg (Negative); Blood, Urine Negative (Negative); Clarity Clear (Clear); Glucose, Urine (Dipstick) Normal (Negative); Ketone, Urine Negative (Negative); Leukocyte Negative (Negative); Nitrite Negative (Negative); Protein, Urine (Dipstick) Negative (Neg-Trace); Specific Gravity, Urine 1.015 (1.002-1.036); Urobilinogen Normal mg/dL (Less than 2)
[2021-02-12] MEDS ORDERED: Dextrose 5% in Water 1,000 ML IV PRN (16:49)
[2021-02-12] MEDS ORDERED: Ondansetron ODT 4 MG TAB PO PRN (16:59)
[2021-02-12] MEDS ORDERED: Acetaminophen 325 MG TAB PO PRN ×2 (16:59→17:00)
[2021-02-12] MEDS ORDERED: Ondansetron PF 4 MG/2 ML Vial IVP PRN (17:00)
[2021-02-12] MEDS ORDERED: Ondansetron ODT 4 MG TAB SL PRN (17:00)
[2021-02-12] MEDS ORDERED: Dextrose 50% Abboject 50 ML SYRINGE ONE ×2 (17:04→18:41)
[2021-02-12] MEDS: Dextrose 50% Abboject 50 ML SYRINGE SLOW IVP PRN ×2 (18:41→21:57)
[2021-02-12] MEDS ORDERED: Dextrose 10% in Water 1,000 ML IV SCH (19:00)
[2021-02-12 19:43] VITALS: BMI 44.4
[2021-02-12] MEDS: Ciprofloxacin 500 MG TAB PO SCH (20:09)
[2021-02-12] MEDS ORDERED: FLU VACC QS2021-22(65YR UP)/PF 240 MCG/0.7 ML SYRINGE IM ONE (20:30)
[2021-02-12] MEDS: Famotidine 20 MG TAB PO SCH (22:56)
[2021-02-13] MEDS: Dextrose 50% Abboject 50 ML SYRINGE SLOW IVP PRN (00:30)
[2021-02-13] MEDS: Ciprofloxacin 500 MG TAB PO SCH (05:40)
[2021-02-13 05:46] LABS: #Basophils 0.1 10x3/uL (0.0-0.2); #Eosinphils 0.3 10x3/uL (0.0-0.5); #Monocytes 0.7 10x3/uL (0.0-1.1); #Neutrophils 4.8 10x3/uL (1.5-8.4); %Basophils 0.7 % (0.0-2.0); %Eosinophils 3.4 % (0.0-6.0); %Lymphocytes 21.3 % (18.0-47.0); %Monocytes 9.2 % (0.0-10.0); %Neutrophils 64.9 % (40.0-75.0); Hemoglobin 9.8 g/dL (13.5-17.5); Mean Corpuscular HGB CONC 30.6 g/dL (32.0-36.0); Mean Corpuscular Hemoglobin 27.1 pg (27.0-33.0); Mean Corpuscular Volume 88.4 fl (81.2-95.1); Mean Platelet Volume 10.3 fl (7.4-10.4); Platelet Count 421 10x3/uL (150-450); RBC Distribution Width 15.1 % (11.5-14.5); Red Blood Cell (RBC) Count 3.62 10x6/uL (4.32-5.72); White Blood Cell (WBC) Count 7.4 10x3/uL (3.5-10.5)
[2021-02-13] MEDS: Dextrose 10% in Water 1,000 ML IV SCH ×2 (05:51→15:48)
[2021-02-13 06:02] LABS: ALT (SGPT) 19 U/L (8-55); AST (SGOT) 26 U/L (5-34); Alkaline Phosphatase 62 U/L (40-110); Anion Gap 14 mmol/L (10-20); BUN (Urea Nitrogen) 30 mg/dL (8.4-25.7); Bilirubin, Total 0.4 mg/dL (0.2-1.2); Calc. Creatinine Clearance 89 mL/min (70-130); Calcium 8.2 mg/dL (7.8-10.44); Carbon Dioxide 22 mmol/L (23-31); Chloride 107 mmol/L (98-107); Glucose 83 mg/dL (83-110); Potassium 5.3 mmol/L (3.5-5.1); Sodium 138 mmol/L (136-145)
[2021-02-13] MEDS ORDERED: Morphine ER 30 MG TAB PO PRN (08:14)
[2021-02-13] MEDS ORDERED: Thiamine 100 MG TAB PO SCH (08:30)
[2021-02-13] MEDS: Enoxaparin Sodium 40 MG/0.4 ML SYRINGE SC SCH ×3 (08:54→20:57)
[2021-02-13] MEDS: Multivit, Therapeutic 1 TAB PO SCH (08:55)
[2021-02-13] MEDS: HYDROcodone/Acetaminophen 5/325 mg Tablet PO PRN (08:55)
[2021-02-13] MEDS: Folic Acid 1 MG TAB PO SCH (08:55)
[2021-02-13] MEDS: Furosemide 20 MG TAB PO SCH (08:55)
[2021-02-13] MEDS: Gabapentin 300 MG CAP PO SCH ×2 (08:55→20:55)
[2021-02-13] MEDS: Famotidine 20 MG TAB PO SCH ×2 (08:55→08:56)
[2021-02-13] MEDS ORDERED: Furosemide 40 MG TAB PO SCH (09:00)
[2021-02-13] MEDS ORDERED: Penicillin V Potassium 250 MG TAB PO SCH (09:15)
[2021-02-13 14:26] LABS: SARS-CoV-2 PCR by NAA Not Detected (NotDetected)
[2021-02-13] MEDS: Penicillin V Potassium 250 MG TAB PO SCH (20:56)
[2021-02-13] MEDS ORDERED: Gabapentin 100 MG CAP PO SCH (21:00)
[2021-02-13] MEDS ORDERED: traZODone HCl 50 MG TAB PO SCH (21:00)
[2021-02-14] MEDS ORDERED: Morphine ER 15 MG TAB PO PRN (04:30)
[2021-02-14] MEDS: HYDROcodone/Acetaminophen 5/325 mg Tablet PO PRN (05:12)
[2021-02-14] MEDS: Dextrose 10% in Water 1,000 ML IV SCH ×3 (06:10→10:05)
[2021-02-14] MEDS ORDERED: Enoxaparin Sodium 40 MG/0.4 ML SYRINGE SC SCH (09:00)
[2021-02-14] MEDS ORDERED: Thiamine 100 MG TAB PO SCH (09:00)
[2021-02-14] MEDS ORDERED: LACTINEX 1 TAB PO SCH (09:00)
[2021-02-14] MEDS: Gabapentin 300 MG CAP PO SCH (09:13)
[2021-02-14] MEDS: Multivit, Therapeutic 1 TAB PO SCH (09:14)
[2021-02-14] MEDS: Penicillin V Potassium 250 MG TAB PO SCH (09:14)
[2021-02-14] MEDS: Famotidine 20 MG TAB PO SCH (09:14)
[2021-02-14] MEDS: Folic Acid 1 MG TAB PO SCH (09:15)
[2021-02-14] MEDS: Furosemide 20 MG TAB PO SCH (09:15)
[2021-02-14] MEDS: Enoxaparin Sodium 40 MG/0.4 ML SYRINGE SC SCH (09:15)
[2021-02-14 14:19] VITALS: BP 124/53; TEMP 98.2
== END 2021-02-14 14:10 | DRG 638 ==
LOC: CSHERS 12:31 → UNDOADMOB 18:35 → CSHTELE 18:35 → INTOOBSV 18:35 → CSHTELE 02-13 09:42 → OBSVTOIN 02-13 16:13
PROVIDERS: ADMIT Internal Medicine; ATTEND Internal Medicine
DX: E11.649 Type 2 diabetes mellitus with hypoglycemia without coma (principal); Z68.41 Body mass index [BMI] 40.0-44.9, adult; I87.331 Chronic venous hypertension (idiopathic) with ulcer and inflammation of right lower extremity; I87.332 Chronic venous hypertension (idiopathic) with ulcer and inflammation of left lower extremity; I87.311 Chronic venous hypertension (idiopathic) with ulcer of right lower extremity; L97.812 Non-pressure chronic ulcer of other part of right lower leg with fat layer exposed; L97.222 Non-pressure chronic ulcer of left calf with fat layer exposed; L97.422 Non-pressure chronic ulcer of left heel and midfoot with fat layer exposed; L97.822 Non-pressure chronic ulcer of other part of left lower leg with fat layer exposed; L03.818 Cellulitis of other sites; N18.31 Chronic kidney disease, stage 3a; I87.2 Venous insufficiency (chronic) (peripheral); I12.9 Hypertensive chronic kidney disease with stage 1 through stage 4 chronic kidney disease, or unspecified chronic kidney disease; E11.65 Type 2 diabetes mellitus with hyperglycemia; E66.01 Morbid (severe) obesity due to excess calories; R60.0 Localized edema; E11.40 Type 2 diabetes mellitus with diabetic neuropathy, unspecified; I89.0 Lymphedema, not elsewhere classified; B96.5 Pseudomonas (aeruginosa) (mallei) (pseudomallei) as the cause of diseases classified elsewhere; L60.1 Onycholysis; Z91.128 Patient's intentional underdosing of medication regimen for other reason
CPT/HCPCS: 29581; 36415; 36416; 51701; 70450; 80053; 81003; 82550; 84484; 85025; 93005; 96372; 96374; 96376; 99213; G0378; G0463; J1610; J1650; U0003; U0005

== ENCOUNTER 2021-02-18 09:24 | Outpatient (CLI) | payer MEDICARE | END 2021-02-18 09:25 | disposition home or self-care (01) | LOC: CSHWCC 09:24 | PROVIDERS: ATTEND Nurse Practitioner Family | DX: L89.893 Pressure ulcer of other site, stage 3 (principal); R60.0 Localized edema; L03.818 Cellulitis of other sites; E11.40 Type 2 diabetes mellitus with diabetic neuropathy, unspecified; E66.01 Morbid (severe) obesity due to excess calories; I87.2 Venous insufficiency (chronic) (peripheral); I89.0 Lymphedema, not elsewhere classified; B96.5 Pseudomonas (aeruginosa) (mallei) (pseudomallei) as the cause of diseases classified elsewhere; L60.1 Onycholysis; Z74.01 Bed confinement status; Z91.128 Patient's intentional underdosing of medication regimen for other reason | CPT/HCPCS: 29581; 97139; G0463; 99213 ==

== ENCOUNTER 2021-04-02 16:00 | Observation (INO) | payer MEDICARE, MEDICAID ==
[2021-04-02] MEDS ORDERED: Dextrose 50% Abboject 50 ML SYRINGE ONE ×3 (16:50→19:55)
[2021-04-02 17:14] LABS: #Basophils 0.1 10x3/uL (0.0-0.2); #Eosinphils 0.4 10x3/uL (0.0-0.5); #Monocytes 0.8 10x3/uL (0.0-1.1); #Neutrophils 11.4 10x3/uL (1.5-8.4); %Basophils 0.3 % (0.0-2.0); %Eosinophils 2.4 % (0.0-6.0); %Monocytes 5.3 % (0.0-10.0); %Neutrophils 79.6 % (40.0-75.0); Hemoglobin 10.5 g/dL (13.5-17.5); Mean Corpuscular HGB CONC 31.4 g/dL (32.0-36.0); Mean Corpuscular Hemoglobin 25.4 pg (27.0-33.0); Mean Corpuscular Volume 80.9 fl (81.2-95.1); Mean Platelet Volume 9.6 fl (7.4-10.4); Platelet Count 410 10x3/uL (150-450); RBC Distribution Width 15.9 % (11.5-14.5); Red Blood Cell (RBC) Count 4.13 10x6/uL (4.32-5.72); White Blood Cell (WBC) Count 14.3 10x3/uL (3.5-10.5)
[2021-04-02 17:35] LABS: ALT (SGPT) 10 U/L (8-55); AST (SGOT) 13 U/L (5-34); Albumin 2.9 g/dL (3.4-4.8); Alkaline Phosphatase 71 U/L (40-110); Anion Gap 12 mmol/L (10-20); BUN (Urea Nitrogen) 14 mg/dL (8.4-25.7); Bilirubin, Total 0.2 mg/dL (0.2-1.2); Calc. Creatinine Clearance 0 mL/min (70-130); Calcium 8.3 mg/dL (7.8-10.44); Carbon Dioxide 22 mmol/L (23-31); Chloride 104 mmol/L (98-107); Globulin 3.7 g/dL (2.4-3.5); Glucose 68 mg/dL (83-110); Potassium 3.4 mmol/L (3.5-5.1); Protein, Total 6.6 g/dL (5.8-8.1); Sodium 135 mmol/L (136-145)
[2021-04-02] MEDS ORDERED: Acetaminophen 325 MG TAB PO PRN (19:15)
[2021-04-02] MEDS ORDERED: Calcium Carbonate 500 MG ChewTAB PO PRN (19:15)
[2021-04-02] MEDS ORDERED: Dextrose 5% in Water 1,000 ML IV PRN (19:15)
[2021-04-02] MEDS ORDERED: HYDROcodone/Acetaminophen 5/325 mg Tablet PO PRN (19:15)
[2021-04-02] MEDS ORDERED: Senokot S 8.6-50 MG TAB PO PRN (19:15)
[2021-04-02] MEDS ORDERED: Guaifenesin DM 100-10/5 ML UDCUP PO PRN (19:15)
[2021-04-02] MEDS ORDERED: Dextrose 50% Abboject 50 ML SYRINGE SLOW IVP PRN (19:15)
[2021-04-02] MEDS ORDERED: Ondansetron PF 4 MG/2 ML Vial IVP PRN (19:15)
[2021-04-02] MEDS ORDERED: Dextrose 5 % And 0.9 % NaCl 1,000 ML IV SCH (19:30)
[2021-04-02] MEDS ORDERED: Dextrose 10% in Water 250 ML IV SCH (19:30)
[2021-04-02 20:04] LABS: SARS-CoV-2 NAA Rapid Test Not Detected (NotDetected)
[2021-04-02] MEDS ORDERED: traZODone HCl 50 MG TAB PO SCH (21:00)
[2021-04-02] MEDS ORDERED: Gabapentin 100 MG CAP PO SCH (21:00)
[2021-04-02] MEDS ORDERED: Thiamine 100 MG TAB PO SCH (21:00)
[2021-04-02] MEDS: Penicillin V Potassium 250 MG TAB PO SCH (22:04)
[2021-04-02 22:33] VITALS: BMI 37.2
[2021-04-03 04:00] LABS: #Basophils 0.1 10x3/uL (0.0-0.2); #Eosinphils 0.5 10x3/uL (0.0-0.5); #Monocytes 0.6 10x3/uL (0.0-1.1); #Neutrophils 5.6 10x3/uL (1.5-8.4); %Basophils 0.7 % (0.0-2.0); %Eosinophils 5.7 % (0.0-6.0); %Lymphocytes 20.6 % (18.0-47.0); %Monocytes 6.5 % (0.0-10.0); %Neutrophils 66.3 % (40.0-75.0); Anion Gap 13 mmol/L (10-20); BUN (Urea Nitrogen) 13 mg/dL (8.4-25.7); Calc. Creatinine Clearance 113 mL/min (70-130); Calcium 8.3 mg/dL (7.8-10.44); Carbon Dioxide 21 mmol/L (23-31); Chloride 103 mmol/L (98-107); Glucose 133 mg/dL (83-110); Hemoglobin 10.5 g/dL (13.5-17.5); Mean Corpuscular HGB CONC 32.3 g/dL (32.0-36.0); Mean Corpuscular Hemoglobin 25.7 pg (27.0-33.0); Mean Corpuscular Volume 79.7 fl (81.2-95.1); Mean Platelet Volume 10.3 fl (7.4-10.4); Platelet Count 418 10x3/uL (150-450); Potassium 3.7 mmol/L (3.5-5.1); RBC Distribution Width 15.9 % (11.5-14.5); Red Blood Cell (RBC) Count 4.08 10x6/uL (4.32-5.72); Sodium 133 mmol/L (136-145); White Blood Cell (WBC) Count 8.4 10x3/uL (3.5-10.5)
[2021-04-03] MEDS ORDERED: Dextrose 5 % And 0.9 % NaCl 1,000 ML IV SCH (06:00)
[2021-04-03] MEDS ORDERED: Enoxaparin Sodium 40 MG/0.4 ML SYRINGE SC SCH (09:00)
[2021-04-03] MEDS ORDERED: Folic Acid 1 MG TAB PO SCH (09:00)
[2021-04-03] MEDS ORDERED: Multivit, Therapeutic 1 TAB PO SCH (09:00)
[2021-04-03] MEDS ORDERED: LACTINEX 1 TAB PO SCH (09:00)
[2021-04-03] MEDS ORDERED: Famotidine 20 MG TAB PO SCH ×2 (09:00→21:00)
[2021-04-03] MEDS: Penicillin V Potassium 250 MG TAB PO SCH (09:55)
[2021-04-03 10:33] LABS: Hemoglobin A1c 4.7 % (4.0-6.0)
[2021-04-04] MEDS ORDERED: FLU VACC QS2021-22(65YR UP)/PF 240 MCG/0.7 ML SYRINGE IM ONE (09:00)
== END 2021-04-03 14:06 ==
LOC: CSHERS 16:00 → CSHIMCU 21:16 → INTOOBSV 21:16
PROVIDERS: ADMIT Student in an Organized Health Care Education/Training Program; ATTEND Hospitalist
DX: E11.649 Type 2 diabetes mellitus with hypoglycemia without coma (principal); G93.41 Metabolic encephalopathy; E11.22 Type 2 diabetes mellitus with diabetic chronic kidney disease; I12.9 Hypertensive chronic kidney disease with stage 1 through stage 4 chronic kidney disease, or unspecified chronic kidney disease; N18.2 Chronic kidney disease, stage 2 (mild); Z79.899 Other long term (current) drug therapy; I73.9 Peripheral vascular disease, unspecified; E66.01 Morbid (severe) obesity due to excess calories; F41.9 Anxiety disorder, unspecified; F32.A Depression, unspecified; Z87.891 Personal history of nicotine dependence; D72.829 Elevated white blood cell count, unspecified; R65.10 Systemic inflammatory response syndrome (SIRS) of non-infectious origin without acute organ dysfunction; Z68.41 Body mass index [BMI] 40.0-44.9, adult; I87.2 Venous insufficiency (chronic) (peripheral); D63.1 Anemia in chronic kidney disease; Z20.822 Contact with and (suspected) exposure to COVID-19
CPT/HCPCS: 71045; 80048; 80053; 82962 ×2; 83036; 85025 ×2; 96372 ×2; 96374; 96376; 97139; 99285; G0378 ×3; J1610; U0002; 36415; 36416; J1650; J7042

== ENCOUNTER 2021-05-04 12:53 | Outpatient (CLI) | payer MEDICARE | END 2021-05-04 12:54 | disposition home or self-care (01) | LOC: CSHWCC 12:53 | PROVIDERS: ATTEND Nurse Practitioner Family | DX: L89.523 Pressure ulcer of left ankle, stage 3 (principal); R60.0 Localized edema; E11.40 Type 2 diabetes mellitus with diabetic neuropathy, unspecified; E66.01 Morbid (severe) obesity due to excess calories; I87.2 Venous insufficiency (chronic) (peripheral); I87.311 Chronic venous hypertension (idiopathic) with ulcer of right lower extremity; L97.412 Non-pressure chronic ulcer of right heel and midfoot with fat layer exposed; I87.312 Chronic venous hypertension (idiopathic) with ulcer of left lower extremity; L97.422 Non-pressure chronic ulcer of left heel and midfoot with fat layer exposed; I89.0 Lymphedema, not elsewhere classified; L03.818 Cellulitis of other sites; B96.5 Pseudomonas (aeruginosa) (mallei) (pseudomallei) as the cause of diseases classified elsewhere; L60.1 Onycholysis; L89.893 Pressure ulcer of other site, stage 3; Z74.01 Bed confinement status; Z91.128 Patient's intentional underdosing of medication regimen for other reason | CPT/HCPCS: 11042; 29581; 97139; G0463; 99213 ==

== ENCOUNTER 2021-08-12 09:43 | Outpatient (CLI) | payer MEDICARE, MEDICAID | END 2021-08-12 09:44 | disposition home or self-care (01) | LOC: CSHWCC 09:43 | PROVIDERS: ATTEND Nurse Practitioner Family | DX: L89.523 Pressure ulcer of left ankle, stage 3 (principal); L89.93 Pressure ulcer of unspecified site, stage 3; S91.002D Unspecified open wound, left ankle, subsequent encounter; R60.0 Localized edema | CPT/HCPCS: 29581 ==

== ENCOUNTER 2021-09-03 14:02 | Outpatient (CLI) | payer MEDICARE, MEDICAID | END 2021-09-03 14:03 | disposition home or self-care (01) | LOC: CSHWCC 14:02 | PROVIDERS: ATTEND Nurse Practitioner Family | DX: L89.523 Pressure ulcer of left ankle, stage 3 (principal); I87.331 Chronic venous hypertension (idiopathic) with ulcer and inflammation of right lower extremity; L97.312 Non-pressure chronic ulcer of right ankle with fat layer exposed; L97.421 Non-pressure chronic ulcer of left heel and midfoot limited to breakdown of skin; R60.0 Localized edema | CPT/HCPCS: 29581; 97139; G0463; 99213 ==

== ENCOUNTER 2021-09-17 10:11 | Outpatient (CLI) | payer MEDICARE, MEDICAID | END 2021-09-17 10:12 | disposition home or self-care (01) | LOC: CSHWCC 10:11 | PROVIDERS: ATTEND Nurse Practitioner Family | DX: L89.523 Pressure ulcer of left ankle, stage 3 (principal); I87.331 Chronic venous hypertension (idiopathic) with ulcer and inflammation of right lower extremity; L97.312 Non-pressure chronic ulcer of right ankle with fat layer exposed; L97.421 Non-pressure chronic ulcer of left heel and midfoot limited to breakdown of skin; R60.0 Localized edema | CPT/HCPCS: 29581 ==

== ENCOUNTER 2021-11-18 13:46 | Outpatient (CLI) | payer MEDICARE, MEDICAID | END 2021-11-18 13:47 | disposition home or self-care (01) | LOC: CSHWCC 13:46 | PROVIDERS: ATTEND Nurse Practitioner Family | DX: L89.523 Pressure ulcer of left ankle, stage 3 (principal); I87.331 Chronic venous hypertension (idiopathic) with ulcer and inflammation of right lower extremity; L97.312 Non-pressure chronic ulcer of right ankle with fat layer exposed; R60.0 Localized edema; L97.421 Non-pressure chronic ulcer of left heel and midfoot limited to breakdown of skin ==

== ENCOUNTER 2021-12-09 10:56 | Outpatient (CLI) | payer MEDICARE, MEDICAID | END 2021-12-09 10:57 | disposition home or self-care (01) | LOC: CSHWCC 10:56 | PROVIDERS: ATTEND Nurse Practitioner Family | DX: L89.523 Pressure ulcer of left ankle, stage 3 (principal); R60.0 Localized edema | CPT/HCPCS: 29581; 97607 ==

== ENCOUNTER 2021-12-16 10:01 | Outpatient (CLI) | payer MEDICARE, MEDICAID | END 2021-12-16 10:02 | disposition home or self-care (01) | LOC: CSHWCC 10:01 | PROVIDERS: ATTEND Preventive Medicine Undersea and Hyperbaric Medicine | DX: L89.523 Pressure ulcer of left ankle, stage 3 (principal); R60.0 Localized edema | CPT/HCPCS: 11042; 97607 ==

== ENCOUNTER 2021-12-23 09:07 | Outpatient (CLI) | payer MEDICARE, MEDICAID | END 2021-12-23 09:08 | disposition home or self-care (01) | LOC: CSHWCC 09:07 | PROVIDERS: ATTEND Nurse Practitioner Family | DX: S91.302D Unspecified open wound, left foot, subsequent encounter (principal); L89.523 Pressure ulcer of left ankle, stage 3; R60.0 Localized edema | CPT/HCPCS: 11042 ==

== ENCOUNTER 2022-02-02 13:45 | Outpatient (CLI) | payer MEDICARE, MEDICAID | END 2022-02-02 13:46 | disposition home or self-care (01) | LOC: CSHWCC 13:45 | PROVIDERS: ATTEND Preventive Medicine Undersea and Hyperbaric Medicine | DX: L89.523 Pressure ulcer of left ankle, stage 3 (principal); R60.0 Localized edema | CPT/HCPCS: 11042 ==

== ENCOUNTER 2022-02-17 09:35 | Outpatient (CLI) | payer MEDICARE, OTHER | END 2022-02-17 09:36 | disposition home or self-care (01) | LOC: CSHWCC 09:35 | PROVIDERS: ATTEND Nurse Practitioner Family | DX: L89.523 Pressure ulcer of left ankle, stage 3 (principal); I87.332 Chronic venous hypertension (idiopathic) with ulcer and inflammation of left lower extremity; L97.322 Non-pressure chronic ulcer of left ankle with fat layer exposed; R60.0 Localized edema | CPT/HCPCS: 87070; 87077; 87205 ==

== ENCOUNTER 2022-03-02 11:06 | Outpatient (CLI) | payer MEDICARE, MEDICAID | END 2022-03-02 11:07 | disposition home or self-care (01) | LOC: CSHULT 11:06 | PROVIDERS: ATTEND Thoracic Surgery (Cardiothoracic Vascular Surgery) | DX: I70.202 Unspecified atherosclerosis of native arteries of extremities, left leg (principal); I77.9 Disorder of arteries and arterioles, unspecified | CPT/HCPCS: 93923 ==

== ENCOUNTER 2022-05-04 13:05 | Outpatient (CLI) | payer MEDICARE, OTHER | END 2022-05-04 13:06 | disposition home or self-care (01) | LOC: CSHWCC 13:05 | PROVIDERS: ATTEND Nurse Practitioner Family | DX: L89.523 Pressure ulcer of left ankle, stage 3 (principal); I87.332 Chronic venous hypertension (idiopathic) with ulcer and inflammation of left lower extremity; L97.322 Non-pressure chronic ulcer of left ankle with fat layer exposed; R60.0 Localized edema | CPT/HCPCS: 29581 ==

== ENCOUNTER 2022-05-25 08:28 | Outpatient (CLI) | payer MEDICARE, MEDICAID | END 2022-05-25 08:29 | disposition home or self-care (01) | LOC: CSHWCC 08:28 | PROVIDERS: ATTEND Nurse Practitioner Family | DX: L89.523 Pressure ulcer of left ankle, stage 3 (principal); I87.332 Chronic venous hypertension (idiopathic) with ulcer and inflammation of left lower extremity; L97.322 Non-pressure chronic ulcer of left ankle with fat layer exposed; R60.0 Localized edema | CPT/HCPCS: 29581 ==

== ENCOUNTER 2022-06-22 11:40 | Outpatient (CLI) | payer MEDICARE, OTHER, MEDICAID | END 2022-06-22 11:41 | disposition home or self-care (01) | LOC: CSHWCC 11:40 | PROVIDERS: ATTEND Nurse Practitioner Family | DX: L89.523 Pressure ulcer of left ankle, stage 3 (principal); I87.332 Chronic venous hypertension (idiopathic) with ulcer and inflammation of left lower extremity; L97.322 Non-pressure chronic ulcer of left ankle with fat layer exposed; R60.0 Localized edema; Z74.01 Bed confinement status | CPT/HCPCS: 29581 ==

== ENCOUNTER 2022-07-13 13:16 | Outpatient (CLI) | payer MEDICARE, OTHER, MEDICAID | END 2022-07-13 13:17 | disposition home or self-care (01) | LOC: CSHWCC 13:16 | PROVIDERS: ATTEND Nurse Practitioner Family | DX: I87.332 Chronic venous hypertension (idiopathic) with ulcer and inflammation of left lower extremity (principal); L97.322 Non-pressure chronic ulcer of left ankle with fat layer exposed; R60.0 Localized edema ==

== ENCOUNTER 2022-08-10 13:03 | Outpatient (CLI) | payer MEDICARE, OTHER, MEDICAID | END 2022-08-10 13:04 | disposition home or self-care (01) | LOC: CSHWCC 13:03 | PROVIDERS: ATTEND Nurse Practitioner Family | DX: I87.332 Chronic venous hypertension (idiopathic) with ulcer and inflammation of left lower extremity (principal); L97.322 Non-pressure chronic ulcer of left ankle with fat layer exposed; R60.0 Localized edema ==

== ENCOUNTER 2022-10-21 13:30 | Outpatient (CLI) | payer MEDICARE, OTHER, MEDICAID | END 2022-10-21 13:31 | disposition home or self-care (01) | LOC: CSHWCC 13:30 | PROVIDERS: ATTEND Nurse Practitioner Family | DX: R60.0 Localized edema (principal); I87.332 Chronic venous hypertension (idiopathic) with ulcer and inflammation of left lower extremity; L97.322 Non-pressure chronic ulcer of left ankle with fat layer exposed; S91.105D Unspecified open wound of left lesser toe(s) without damage to nail, subsequent encounter; S91.104D Unspecified open wound of right lesser toe(s) without damage to nail, subsequent encounter | CPT/HCPCS: 29581; 97597 ==

== ENCOUNTER 2022-11-18 13:30 | Outpatient (CLI) | payer MEDICARE, OTHER | END 2022-11-18 13:31 | disposition home or self-care (01) | LOC: CSHWCC 13:30 | PROVIDERS: ATTEND Nurse Practitioner Family | DX: R60.0 Localized edema (principal); I87.332 Chronic venous hypertension (idiopathic) with ulcer and inflammation of left lower extremity; L97.322 Non-pressure chronic ulcer of left ankle with fat layer exposed | CPT/HCPCS: 29581 ==

== ENCOUNTER 2022-12-06 08:50 | Outpatient (CLI) | payer MEDICARE, OTHER | END 2022-12-06 08:51 | disposition home or self-care (01) | LOC: CSHWCC 08:50 | PROVIDERS: ATTEND Nurse Practitioner Family | DX: I87.332 Chronic venous hypertension (idiopathic) with ulcer and inflammation of left lower extremity (principal); L97.322 Non-pressure chronic ulcer of left ankle with fat layer exposed; R60.0 Localized edema | CPT/HCPCS: 29581; 97139; 97597; G0463; 99213 ==

== ENCOUNTER 2023-01-03 08:59 | Outpatient (CLI) | payer MEDICARE, OTHER | END 2023-01-03 09:00 | disposition home or self-care (01) | LOC: CSHWCC 08:59 | PROVIDERS: ATTEND Preventive Medicine Undersea and Hyperbaric Medicine | DX: L89.523 Pressure ulcer of left ankle, stage 3 (principal); I87.332 Chronic venous hypertension (idiopathic) with ulcer and inflammation of left lower extremity; L97.322 Non-pressure chronic ulcer of left ankle with fat layer exposed; R60.0 Localized edema | CPT/HCPCS: 11042; 11045; 29581 ==

== ENCOUNTER 2023-01-25 10:06 | Outpatient (CLI) | payer MEDICARE, OTHER | END 2023-01-25 10:07 | disposition home or self-care (01) | LOC: CSHWCC 10:06 | PROVIDERS: ATTEND Preventive Medicine Undersea and Hyperbaric Medicine | DX: I87.332 Chronic venous hypertension (idiopathic) with ulcer and inflammation of left lower extremity (principal); L97.329 Non-pressure chronic ulcer of left ankle with unspecified severity; L89.523 Pressure ulcer of left ankle, stage 3; L89.92 Pressure ulcer of unspecified site, stage 2 | CPT/HCPCS: 29581 ==

== ENCOUNTER 2023-02-16 10:46 | Outpatient (CLI) | payer MEDICARE, OTHER | END 2023-02-16 10:47 | disposition home or self-care (01) | LOC: CSHWCC 10:46 | PROVIDERS: ATTEND Physician Assistant | DX: I87.313 Chronic venous hypertension (idiopathic) with ulcer of bilateral lower extremity (principal); L97.919 Non-pressure chronic ulcer of unspecified part of right lower leg with unspecified severity; L97.929 Non-pressure chronic ulcer of unspecified part of left lower leg with unspecified severity; B91 Sequelae of poliomyelitis | CPT/HCPCS: 29581; 97597; G0463; 99213 ==

== ENCOUNTER 2023-02-16 13:12 | Outpatient (CLI) | payer MEDICARE, OTHER | END 2023-02-16 13:13 | disposition home or self-care (01) | LOC: CSHRAD 13:12 | PROVIDERS: ATTEND Physician Assistant | DX: I87.313 Chronic venous hypertension (idiopathic) with ulcer of bilateral lower extremity (principal) ==

== ENCOUNTER 2023-03-01 11:09 | Outpatient (CLI) | payer MEDICARE, MEDICAID | END 2023-03-01 11:10 | disposition home or self-care (01) | LOC: CSHWCC 11:09 | PROVIDERS: ATTEND Physician Assistant | DX: I87.313 Chronic venous hypertension (idiopathic) with ulcer of bilateral lower extremity (principal); B91 Sequelae of poliomyelitis | CPT/HCPCS: 29581 ==

== ENCOUNTER 2023-03-16 11:42 | Outpatient (CLI) | payer MEDICARE, OTHER, MEDICAID | END 2023-03-16 11:43 | disposition home or self-care (01) | LOC: CSHWCC 11:42 | PROVIDERS: ATTEND Physician Assistant | DX: I87.313 Chronic venous hypertension (idiopathic) with ulcer of bilateral lower extremity (principal); B91 Sequelae of poliomyelitis | CPT/HCPCS: 29581; G0463; 88305; 99213 ==

== ENCOUNTER 2023-03-23 07:35 | Outpatient (CLI) | payer MEDICARE, MEDICAID | END 2023-03-23 07:36 | LOC: CSHULT 07:35 | PROVIDERS: ATTEND Physician Assistant | DX: I87.332 Chronic venous hypertension (idiopathic) with ulcer and inflammation of left lower extremity (principal); L97.329 Non-pressure chronic ulcer of left ankle with unspecified severity; R93.6 Abnormal findings on diagnostic imaging of limbs | CPT/HCPCS: 93970 ==

== ENCOUNTER 2023-04-20 10:59 | Outpatient (CLI) | payer MEDICARE, MEDICAID | END 2023-04-20 11:00 | disposition home or self-care (01) | LOC: CSHWCC 10:59 | PROVIDERS: ATTEND Preventive Medicine Undersea and Hyperbaric Medicine | DX: I87.313 Chronic venous hypertension (idiopathic) with ulcer of bilateral lower extremity (principal); E11.42 Type 2 diabetes mellitus with diabetic polyneuropathy; B91 Sequelae of poliomyelitis | CPT/HCPCS: 29581 ==

== ENCOUNTER 2023-04-26 11:19 | Outpatient (CLI) | payer MEDICARE, MEDICAID | END 2023-04-26 11:20 | disposition home or self-care (01) | LOC: CSHWCC 11:19 | PROVIDERS: ATTEND Preventive Medicine Undersea and Hyperbaric Medicine | DX: I87.313 Chronic venous hypertension (idiopathic) with ulcer of bilateral lower extremity (principal); E11.42 Type 2 diabetes mellitus with diabetic polyneuropathy; L97.929 Non-pressure chronic ulcer of unspecified part of left lower leg with unspecified severity; L97.919 Non-pressure chronic ulcer of unspecified part of right lower leg with unspecified severity; B91 Sequelae of poliomyelitis ==

== ENCOUNTER 2023-05-03 11:15 | Outpatient (CLI) | payer MEDICARE, OTHER, MEDICAID | END 2023-05-03 11:16 | disposition home or self-care (01) | LOC: CSHWCC 11:15 | PROVIDERS: ATTEND Physician Assistant | DX: I87.313 Chronic venous hypertension (idiopathic) with ulcer of bilateral lower extremity (principal); L97.919 Non-pressure chronic ulcer of unspecified part of right lower leg with unspecified severity; L97.929 Non-pressure chronic ulcer of unspecified part of left lower leg with unspecified severity; E11.42 Type 2 diabetes mellitus with diabetic polyneuropathy; B91 Sequelae of poliomyelitis | CPT/HCPCS: 29581; 82962; G0463; 36416; 99214 ==

== ENCOUNTER 2023-05-03 12:04 | Emergency (ER) | payer MEDICARE, OTHER, MEDICAID ==
[2023-05-03 12:45] LABS: Analyzer IN Cardio CS ER; Base Excess -0.9 mEq/L (-2 - +2); Calcium, Ionized (venous) 1.15 mmol/L (1.16-1.32); Chloride (VBG) 103 mmol/L (98-106); Hematocrit-VBG 34 % (42.0-52.0); Hemoglobin (Hb) 11.4 g/dL (12.6-17.4); Potassium (VBG) 3.93 mmol/L (3.70-5.30); Puncture Site Other Site; RapidComm Collect By LAB; Sodium 139 mmol/L (133-146); pH (venous) 7.346 (7.32-7.43)
[2023-05-03 12:48] LABS: Bilirubin Neg (Negative); Blood, Urine 10 (Negative); Clarity Clear (Clear); Glucose, Urine (Dipstick) Normal (Negative); Ketone, Urine Negative (Negative); Leukocyte 500 (Negative); Nitrite Positive (Negative); Protein, Urine (Dipstick) Negative (Neg-Trace); Urobilinogen Normal mg/dL (Less than 2)
[2023-05-03 12:50] LABS: #Basophils 0.1 10x3/uL (0.0-0.2); #Eosinphils 0.3 10x3/uL (0.0-0.5); #Monocytes 0.5 10x3/uL (0.0-1.1); #Neutrophils 8.3 10x3/uL (1.5-8.4); %Basophils 0.5 % (0.0-2.0); %Eosinophils 2.9 % (0.0-6.0); %Lymphocytes 8.6 % (18.0-47.0); %Neutrophils 82.2 % (40.0-75.0); Hemoglobin 10.8 g/dL (13.5-17.5); Mean Corpuscular HGB CONC 31.8 g/dL (32.0-36.0); Mean Corpuscular Hemoglobin 26.7 pg (27.0-33.0); Mean Platelet Volume 9.4 fl (7.4-10.4); Platelet Count 336 10x3/uL (150-450); RBC Distribution Width 14.1 % (11.5-14.5); Red Blood Cell (RBC) Count 4.05 10x6/uL (4.32-5.72); White Blood Cell (WBC) Count 10.1 10x3/uL (3.5-10.5)
[2023-05-03 12:57] LABS: Amphetamine Not Detected (NotDetected); Barbiturates Screen Not Detected (NotDetected); Benzodiazepine Screen Not Detected (NotDetected); Cocaine Metabolite Screen Not Detected (NotDetected); Methadone Not Detected (NotDetected); Methamphetamine Not Detected (NotDetected); Opiate Screen Not Detected (NotDetected); Oxycodone Screen Not Detected (NotDetected); Phencyclidine (PCP) Not Detected (NotDetected); THC/Cannabinoid Screen Not Detected (NotDetected); Tricyclic Screen Detected (NotDetected)
[2023-05-03 13:05] LABS: ALT (SGPT) 11 U/L (8-55); AST (SGOT) 11 U/L (5-34); Albumin 3.7 g/dL (3.4-4.8); Alkaline Phosphatase 74 U/L (40-110); Anion Gap 12 mmol/L (10-20); BUN (Urea Nitrogen) 25 mg/dL (8.4-25.7); Bilirubin, Total 0.4 mg/dL (0.2-1.2); Calc. Creatinine Clearance 0 mL/min (70-130); Calcium 8.8 mg/dL (7.8-10.44); Carbon Dioxide 27 mmol/L (23-31); Chloride 103 mmol/L (98-107); Estimated GFR 42; Globulin 3.3 g/dL (2.4-3.5); Glucose 121 mg/dL (83-110); Potassium 4.1 mmol/L (3.5-5.1); Sodium 138 mmol/L (136-145)
[2023-05-03 13:06] LABS: Acetaminophen Less than 10 mcg/mL (10.0-30.0); Alcohol Less than 10.0 mg/dL (Less than 10); Salicylate Less than 8.0 mg/dL (15.0-30.0)
[2023-05-03 13:13] LABS: Troponin I Less than 0.010 ng/mL (< 0.028)
[2023-05-03 13:30] LABS: CAUTI Indications for Culture Alt mental st,lethar; RBC/HPF 0-3 HPF (0-3); Squamous Epithelial 0-3 HPF (0-3)
[2023-05-03 13:31] LABS: Bacteria/HPF 3+ HPF (None Seen)
[2023-05-03 13:32] LABS: Urine Culture Reflex No No
[2023-05-03] MEDS ORDERED: cefTRIAXone (ROCEPHIN) 2 GM VIAL ONE (13:39)
== END 2023-05-03 14:16 | disposition home or self-care (01) ==
LOC: CSHERS 12:04
DX: N39.0 Urinary tract infection, site not specified (principal); I13.0 Hypertensive heart and chronic kidney disease with heart failure and stage 1 through stage 4 chronic kidney disease, or unspecified chronic kidney disease; E11.22 Type 2 diabetes mellitus with diabetic chronic kidney disease; N18.30 Chronic kidney disease, stage 3 unspecified; I50.9 Heart failure, unspecified; E66.9 Obesity, unspecified
CPT/HCPCS: 36415; 36416; 80053; 80306; 80307; 81001; 82140; 82805; 83605; 84484; 85025; 93005; 96365; J0696

== ENCOUNTER 2023-05-10 10:24 | Outpatient (CLI) | payer MEDICARE, OTHER | END 2023-05-10 10:25 | disposition home or self-care (01) | LOC: CSHWCC 10:24 | PROVIDERS: ATTEND Physician Assistant | DX: I87.313 Chronic venous hypertension (idiopathic) with ulcer of bilateral lower extremity (principal); E11.42 Type 2 diabetes mellitus with diabetic polyneuropathy; B91 Sequelae of poliomyelitis | CPT/HCPCS: 11042; 97597; 97598 ==

== ENCOUNTER 2023-05-18 09:03 | Outpatient (CLI) | payer MEDICARE, OTHER | END 2023-05-18 09:04 | disposition home or self-care (01) | LOC: CSHWCC 09:03 | PROVIDERS: ATTEND Nurse Practitioner Family | DX: I87.313 Chronic venous hypertension (idiopathic) with ulcer of bilateral lower extremity (principal); E11.42 Type 2 diabetes mellitus with diabetic polyneuropathy; L97.919 Non-pressure chronic ulcer of unspecified part of right lower leg with unspecified severity; L97.929 Non-pressure chronic ulcer of unspecified part of left lower leg with unspecified severity; B91 Sequelae of poliomyelitis | CPT/HCPCS: 11042; 11045; 87070; 87077; 87186; 87205; G0463; 99215 ==

== ENCOUNTER 2023-05-25 09:34 | Outpatient (CLI) | payer MEDICARE, OTHER | END 2023-05-25 09:35 | disposition home or self-care (01) | LOC: CSHWCC 09:34 | PROVIDERS: ATTEND Nurse Practitioner Family | DX: I87.313 Chronic venous hypertension (idiopathic) with ulcer of bilateral lower extremity (principal); E11.42 Type 2 diabetes mellitus with diabetic polyneuropathy; B91 Sequelae of poliomyelitis; L97.919 Non-pressure chronic ulcer of unspecified part of right lower leg with unspecified severity; L97.929 Non-pressure chronic ulcer of unspecified part of left lower leg with unspecified severity; L03.116 Cellulitis of left lower limb | CPT/HCPCS: 99215; G0463 ==

== ENCOUNTER 2023-06-01 13:19 | Outpatient (CLI) | payer MEDICARE, OTHER | END 2023-06-01 13:20 | disposition home or self-care (01) | LOC: CSHWCC 13:19 | PROVIDERS: ATTEND Nurse Practitioner Family | DX: I87.313 Chronic venous hypertension (idiopathic) with ulcer of bilateral lower extremity (principal); E11.42 Type 2 diabetes mellitus with diabetic polyneuropathy; B91 Sequelae of poliomyelitis; L03.116 Cellulitis of left lower limb; L97.929 Non-pressure chronic ulcer of unspecified part of left lower leg with unspecified severity; L97.919 Non-pressure chronic ulcer of unspecified part of right lower leg with unspecified severity | CPT/HCPCS: 11042; 11045 ==

== ENCOUNTER 2023-06-06 13:10 | Outpatient (CLI) | payer MEDICARE, OTHER | END 2023-06-06 13:11 | disposition home or self-care (01) | LOC: CSHWCC 13:10 | PROVIDERS: ATTEND Nurse Practitioner Family | DX: I87.313 Chronic venous hypertension (idiopathic) with ulcer of bilateral lower extremity (principal); L97.312 Non-pressure chronic ulcer of right ankle with fat layer exposed; L97.322 Non-pressure chronic ulcer of left ankle with fat layer exposed; L97.212 Non-pressure chronic ulcer of right calf with fat layer exposed; L97.512 Non-pressure chronic ulcer of other part of right foot with fat layer exposed; L03.116 Cellulitis of left lower limb; E11.42 Type 2 diabetes mellitus with diabetic polyneuropathy; B91 Sequelae of poliomyelitis | CPT/HCPCS: 11042; 11045; 97597 ==

== ENCOUNTER 2023-06-17 13:33 | Outpatient (CLI) | payer MEDICARE, OTHER | END 2023-06-17 13:34 | disposition home or self-care (01) | LOC: CSHWCC 13:33 | PROVIDERS: ATTEND Nurse Practitioner Family | DX: I87.313 Chronic venous hypertension (idiopathic) with ulcer of bilateral lower extremity (principal); E11.621 Type 2 diabetes mellitus with foot ulcer; E11.622 Type 2 diabetes mellitus with other skin ulcer; L97.312 Non-pressure chronic ulcer of right ankle with fat layer exposed; L97.322 Non-pressure chronic ulcer of left ankle with fat layer exposed; L97.212 Non-pressure chronic ulcer of right calf with fat layer exposed; L97.512 Non-pressure chronic ulcer of other part of right foot with fat layer exposed; E11.42 Type 2 diabetes mellitus with diabetic polyneuropathy; B91 Sequelae of poliomyelitis | CPT/HCPCS: 11042; 11045; 97597; 97598 ==

== ENCOUNTER 2023-07-06 13:20 | Outpatient (CLI) | payer MEDICARE, OTHER, MEDICAID | END 2023-07-06 13:21 | disposition home or self-care (01) | LOC: CSHWCC 13:20 | PROVIDERS: ATTEND Nurse Practitioner Family | DX: E11.621 Type 2 diabetes mellitus with foot ulcer (principal); L97.512 Non-pressure chronic ulcer of other part of right foot with fat layer exposed; E11.622 Type 2 diabetes mellitus with other skin ulcer; L97.312 Non-pressure chronic ulcer of right ankle with fat layer exposed; L97.322 Non-pressure chronic ulcer of left ankle with fat layer exposed; L97.212 Non-pressure chronic ulcer of right calf with fat layer exposed; I87.313 Chronic venous hypertension (idiopathic) with ulcer of bilateral lower extremity; E11.42 Type 2 diabetes mellitus with diabetic polyneuropathy; B91 Sequelae of poliomyelitis | CPT/HCPCS: 11042; 11045 ==

== ENCOUNTER 2023-08-17 13:17 | Outpatient (CLI) | payer MEDICARE, MEDICAID | END 2023-08-17 13:18 | disposition home or self-care (01) | LOC: CSHWCC 13:17 | PROVIDERS: ATTEND Nurse Practitioner Family | DX: E11.621 Type 2 diabetes mellitus with foot ulcer (principal); L97.512 Non-pressure chronic ulcer of other part of right foot with fat layer exposed; E11.622 Type 2 diabetes mellitus with other skin ulcer; L97.312 Non-pressure chronic ulcer of right ankle with fat layer exposed; L97.322 Non-pressure chronic ulcer of left ankle with fat layer exposed; I87.313 Chronic venous hypertension (idiopathic) with ulcer of bilateral lower extremity; E11.42 Type 2 diabetes mellitus with diabetic polyneuropathy; B91 Sequelae of poliomyelitis ==

== ENCOUNTER 2023-08-24 11:11 | Emergency (ER) | payer MEDICARE, OTHER ==
[2023-08-24 11:53] LABS: #Basophils 0.07 10x3/uL (0.0-0.2); #Eosinphils 0.32 10x3/uL (0.0-0.5); #Neutrophils 8.68 10x3/uL (1.5-8.4); %Basophils 0.6 % (0.0-2.0); %Eosinophils 2.8 % (0.0-6.0); %Lymphocytes 13.1 % (18.0-47.0); %Monocytes 6.2 % (0.0-10.0); %Neutrophils 76.9 % (40.0-75.0); Hematocrit 32.3 % (38.8-50.0); Hemoglobin 10.3 g/dL (13.5-17.5); Mean Corpuscular HGB CONC 31.9 g/dL (32.0-36.0); Mean Corpuscular Volume 81.6 fl (81.2-95.1); Platelet Count 367 10x3/uL (150-450); RBC Distribution Width 14.6 % (11.5-14.5); Red Blood Cell (RBC) Count 3.96 10x6/uL (4.32-5.72); White Blood Cell (WBC) Count 11.3 10x3/uL (3.5-10.5)
[2023-08-24 12:03] LABS: ALT (SGPT) 7 U/L (8-55); AST (SGOT) 9 U/L (5-34); Albumin 2.8 g/dL (3.4-4.8); Alkaline Phosphatase 77 U/L (40-110); Anion Gap 14 mmol/L (10-20); BUN (Urea Nitrogen) 26 mg/dL (8.4-25.7); Bilirubin, Total 0.3 mg/dL (0.2-1.2); Calc. Creatinine Clearance 0 mL/min (70-130); Carbon Dioxide 23 mmol/L (23-31); Chloride 107 mmol/L (98-107); Estimated GFR 40; Globulin 4.5 g/dL (2.4-3.5); Glucose 120 mg/dL (83-110); Magnesium 2.1 mg/dL (1.6-2.6); Potassium 4.7 mmol/L (3.5-5.1); Protein, Total 7.3 g/dL (5.8-8.1); Sodium 139 mmol/L (136-145)
[2023-08-24 12:05] LABS: Troponin I Less than 0.010 ng/mL (< 0.028)
[2023-08-24 12:30] LABS: Bilirubin Neg (Negative); Blood, Urine Negative (Negative); Clarity Clear (Clear); Glucose, Urine (Dipstick) Normal (Negative); Ketone, Urine Negative (Negative); Leukocyte Negative (Negative); Nitrite Negative (Negative); Protein, Urine (Dipstick) Negative (Neg-Trace); Specific Gravity, Urine 1.015 (1.005-1.030); Urobilinogen Normal mg/dL (Less than 2)
[2023-08-24 12:36] LABS: Bacteria/HPF 1+ HPF (None Seen); RBC/HPF None Seen HPF (0-3); Squamous Epithelial 0-3 HPF (0-3); WBC/HPF 0-3 HPF (0-3)
[2023-08-24] MEDS ORDERED: Cefepime 2 GM VIAL ONE (13:02)
[2023-08-24] MEDS ORDERED: VANCOMYCIN 2 GRAM/400 ML BAG 2 GM in Premix 1 BAG IVPB SCH (13:30)
== END 2023-08-24 14:53 | disposition short-term general hospital (02) ==
LOC: CSHERS 11:11
DX: L03.116 Cellulitis of left lower limb (principal); R53.1 Weakness; I13.0 Hypertensive heart and chronic kidney disease with heart failure and stage 1 through stage 4 chronic kidney disease, or unspecified chronic kidney disease; I50.9 Heart failure, unspecified; N18.30 Chronic kidney disease, stage 3 unspecified; E11.22 Type 2 diabetes mellitus with diabetic chronic kidney disease; Z86.16 Personal history of COVID-19
CPT/HCPCS: 36415; 71045; 80053; 81001; 83605; 83735; 84484; 85025; 87040; 87086; 93005; J0692; J3370

== ENCOUNTER 2023-09-14 10:28 | Outpatient (CLI) | payer MEDICARE, MEDICAID | END 2023-09-14 10:29 | disposition home or self-care (01) | LOC: CSHWCC 10:28 | PROVIDERS: ATTEND Nurse Practitioner Family | DX: I87.313 Chronic venous hypertension (idiopathic) with ulcer of bilateral lower extremity (principal); E11.622 Type 2 diabetes mellitus with other skin ulcer; L97.312 Non-pressure chronic ulcer of right ankle with fat layer exposed; L97.322 Non-pressure chronic ulcer of left ankle with fat layer exposed; E11.621 Type 2 diabetes mellitus with foot ulcer; L97.512 Non-pressure chronic ulcer of other part of right foot with fat layer exposed; E11.42 Type 2 diabetes mellitus with diabetic polyneuropathy; B91 Sequelae of poliomyelitis | CPT/HCPCS: 97597; 97598 ==

== ENCOUNTER 2023-09-21 11:09 | Outpatient (CLI) | payer MEDICARE, MEDICAID | END 2023-09-21 11:10 | disposition home or self-care (01) | LOC: CSHWCC 11:09 | PROVIDERS: ATTEND Nurse Practitioner Family | DX: I87.313 Chronic venous hypertension (idiopathic) with ulcer of bilateral lower extremity (principal); E11.42 Type 2 diabetes mellitus with diabetic polyneuropathy; L97.312 Non-pressure chronic ulcer of right ankle with fat layer exposed; L97.322 Non-pressure chronic ulcer of left ankle with fat layer exposed; L03.116 Cellulitis of left lower limb; B91 Sequelae of poliomyelitis | CPT/HCPCS: 97597; 97598; G0463; 99213 ==

== ENCOUNTER 2023-09-21 12:22 | Inpatient (IN) | payer MEDICARE, MEDICAID ==
[2023-09-21] MEDS ORDERED: Ondansetron ODT 4 MG TAB PO PRN (15:00)
[2023-09-21] MEDS ORDERED: Bisacodyl 5 MG TAB PO PRN (15:00)
[2023-09-21] MEDS ORDERED: Senokot S 8.6-50 MG TAB PO PRN (15:00)
[2023-09-21] MEDS ORDERED: Acetaminophen 650 MG Suppository PR PRN (15:00)
[2023-09-21] MEDS ORDERED: Ondansetron PF 4 MG/2 ML Vial IVP PRN (15:00)
[2023-09-21 15:37] LABS: #Basophils 0.05 10x3/uL (0.0-0.2); #Eosinphils 0.26 10x3/uL (0.0-0.5); #Monocytes 0.69 10x3/uL (0.0-1.1); #Neutrophils 7.59 10x3/uL (1.5-8.4); %Basophils 0.5 % (0.0-2.0); %Eosinophils 2.5 % (0.0-6.0); %Lymphocytes 17.8 % (18.0-47.0); %Monocytes 6.6 % (0.0-10.0); Hematocrit 29.6 % (38.8-50.0); Hemoglobin 9.6 g/dL (13.5-17.5); Mean Corpuscular HGB CONC 32.4 g/dL (32.0-36.0); Mean Corpuscular Volume 80.2 fL (81.2-95.1); Mean Platelet Volume 9.3 fL (7.4-10.4); Platelet Count 503 10x3/uL (150-450); RBC Distribution Width 15.2 % (11.5-14.5); Red Blood Cell (RBC) Count 3.69 10x6/uL (4.32-5.72); White Blood Cell (WBC) Count 10.5 10x3/uL (3.5-10.5)
[2023-09-21 15:47] LABS: Anion Gap 13 mmol/L (10-20); BUN (Urea Nitrogen) 39 mg/dL (8.4-25.7); Calc. Creatinine Clearance 0 mL/min (70-130); Calcium 9.3 mg/dL (7.8-10.44); Carbon Dioxide 23 mmol/L (23-31); Chloride 107 mmol/L (98-107); Estimated GFR 34; Glucose 95 mg/dL (83-110); Potassium 5.4 mmol/L (3.5-5.1); Sodium 138 mmol/L (136-145)
[2023-09-21] MEDS: Piperacillin/Tazobactam 3.375 GM in Sodium Chloride 0.9% 100 ML IVPB SCH (17:38)
[2023-09-21] MEDS: VANCOMYCIN 2 GRAM/400 ML BAG 2 GM in Premix 1 BAG IVPB SCH (17:49)
[2023-09-21] MEDS ORDERED: Piperacillin/Tazobactam 3.375 GM in Sodium Chloride 0.9% 100 ML IVPB SCH (20:00)
[2023-09-21 20:32] VITALS: BMI 47.2
[2023-09-21] MEDS: Sodium Chloride 0.9% 1,000 ML IV SCH (21:26)
[2023-09-21] MEDS: Gabapentin 300 MG CAP PO SCH (21:26)
[2023-09-21] MEDS: DULoxetine 30 MG CAP PO SCH (21:27)
[2023-09-21] MEDS: Cyclobenzaprine 10 MG TAB PO SCH (21:27)
[2023-09-21] MEDS: Thiamine 100 MG TAB PO SCH (21:27)
[2023-09-21] MEDS: Atorvastatin Calcium 10 MG TAB PO SCH (21:27)
[2023-09-21] MEDS: Acetaminophen 325 MG TAB PO PRN (21:27)
[2023-09-21] MEDS: Methocarbamol 500 MG TAB PO SCH (21:28)
[2023-09-21] MEDS: Lantus 1000 UNITS/10 ML VIAL SC SCH (21:42)
[2023-09-22 05:08] LABS: #Basophils 0.07 10x3/uL (0.0-0.2); #Eosinphils 0.18 10x3/uL (0.0-0.5); #Neutrophils 9.82 10x3/uL (1.5-8.4); %Basophils 0.6 % (0.0-2.0); %Eosinophils 1.6 % (0.0-6.0); %Lymphocytes 6.6 % (18.0-47.0); %Monocytes 5.2 % (0.0-10.0); %Neutrophils 85.6 % (40.0-75.0); Hemoglobin 9.2 g/dL (13.5-17.5); Mean Corpuscular HGB CONC 31.7 g/dL (32.0-36.0); Mean Corpuscular Hemoglobin 25.4 pg (27.0-33.0); Mean Corpuscular Volume 80.1 fL (81.2-95.1); Mean Platelet Volume 9.2 fL (7.4-10.4); Platelet Count 480 10x3/uL (150-450); RBC Distribution Width 15.4 % (11.5-14.5); Red Blood Cell (RBC) Count 3.62 10x6/uL (4.32-5.72); White Blood Cell (WBC) Count 11.5 10x3/uL (3.5-10.5)
[2023-09-22 05:13] LABS: Anion Gap 12 mmol/L (10-20); BUN (Urea Nitrogen) 41 mg/dL (8.4-25.7); Calc. Creatinine Clearance 65 mL/min (70-130); Calcium 8.7 mg/dL (7.8-10.44); Carbon Dioxide 19 mmol/L (23-31); Chloride 108 mmol/L (98-107); Estimated GFR 31; Glucose 115 mg/dL (83-110); Potassium 5.3 mmol/L (3.5-5.1); Sodium 134 mmol/L (136-145)
[2023-09-22 05:34] LABS: Vancomycin, Random 26.6 ug/mL (See Comment)
[2023-09-22] MEDS: Levothyroxine Sodium 50 MCG TAB PO SCH (05:55)
[2023-09-22] MEDS ORDERED: Furosemide 20 MG TAB PO SCH (09:00)
[2023-09-22] MEDS: Spironolactone 25 MG TAB PO SCH (09:35)
[2023-09-22] MEDS: Folic Acid 1 MG TAB PO SCH (09:35)
[2023-09-22] MEDS: Enoxaparin 40 MG (0.4 mL) SYRINGE SC SCH (09:42)
[2023-09-22 10:18] VITALS: BMI 47.2
[2023-09-22] MEDS: Cefepime 2 GM in Sodium Chloride 0.9% 100 ML IVPB SCH (14:45)
[2023-09-22] MEDS: HYDROcodone/Acetaminophen 5/325 mg Tablet PO PRN (15:01)
[2023-09-22] MEDS: Clotrimazole 1% Cream 15 GM TUBE TOP SCH (16:16)
[2023-09-22 20:46] LABS: Bilirubin Neg (Negative); Blood, Urine Negative (Negative); Clarity Clear (Clear); Glucose, Urine (Dipstick) Normal (Negative); Ketone, Urine Negative (Negative); Leukocyte 100 (Negative); Nitrite Positive (Negative); Protein, Urine (Dipstick) 15 mg/dl (Neg-Trace); Specific Gravity, Urine 1.015 (1.005-1.030); Urobilinogen Normal mg/dL (Less than 2)
[2023-09-22 21:17] LABS: Bacteria/HPF Rare-Few HPF (None Seen); CAUTI Indications for Culture Pelvic or flank pain; RBC/HPF 0-3 HPF (0-3); Squamous Epithelial 0-3 HPF (0-3)
[2023-09-22 21:19] LABS: Urine Culture Reflex No No
[2023-09-22] MEDS: Sodium Chloride 0.9% 1,000 ML IV SCH (22:33)
[2023-09-23 04:16] LABS: #Basophils 0.05 10x3/uL (0.0-0.2); #Eosinphils 0.38 10x3/uL (0.0-0.5); #Monocytes 0.49 10x3/uL (0.0-1.1); #Neutrophils 4.83 10x3/uL (1.5-8.4); %Basophils 0.7 % (0.0-2.0); %Eosinophils 5.1 % (0.0-6.0); %Lymphocytes 22.2 % (18.0-47.0); %Monocytes 6.6 % (0.0-10.0); %Neutrophils 64.5 % (40.0-75.0); Hematocrit 28.9 % (38.8-50.0); Hemoglobin 9.1 g/dL (13.5-17.5); Mean Corpuscular HGB CONC 31.5 g/dL (32.0-36.0); Mean Corpuscular Hemoglobin 25.5 pg (27.0-33.0); Platelet Count 425 10x3/uL (150-450); RBC Distribution Width 15.8 % (11.5-14.5); Red Blood Cell (RBC) Count 3.57 10x6/uL (4.32-5.72); White Blood Cell (WBC) Count 7.5 10x3/uL (3.5-10.5)
[2023-09-23 04:33] LABS: Vancomycin, Random 14.6 ug/mL (See Comment)
[2023-09-23 04:37] LABS: Anion Gap 12 mmol/L (10-20); BUN (Urea Nitrogen) 32 mg/dL (8.4-25.7); Calc. Creatinine Clearance 84 mL/min (70-130); Calcium 8.8 mg/dL (7.8-10.44); Carbon Dioxide 19 mmol/L (23-31); Chloride 111 mmol/L (98-107); Estimated GFR 42; Glucose 100 mg/dL (83-110); Potassium 5.3 mmol/L (3.5-5.1); Sodium 137 mmol/L (136-145)
[2023-09-23] MEDS: LOKELMA 10 GM PACKET PO SCH (08:55)
[2023-09-23] MEDS: Vancomycin 1 GM in Sodium Chloride 0.9% 250 ML 250 ML IVPB SCH (08:55)
[2023-09-23 19:32] LABS: Anion Gap 12 mmol/L (10-20); BUN (Urea Nitrogen) 28 mg/dL (8.4-25.7); Calc. Creatinine Clearance 83 mL/min (70-130); Calcium 8.9 mg/dL (7.8-10.44); Carbon Dioxide 20 mmol/L (23-31); Chloride 109 mmol/L (98-107); Estimated GFR 41; Glucose 130 mg/dL (83-110); Potassium 4.8 mmol/L (3.5-5.1); Sodium 136 mmol/L (136-145)
[2023-09-23] MEDS: Gabapentin 300 MG CAP PO SCH (21:24)
[2023-09-24 05:22] LABS: #Basophils 0.05 10x3/uL (0.0-0.2); #Eosinphils 0.33 10x3/uL (0.0-0.5); #Monocytes 0.38 10x3/uL (0.0-1.1); #Neutrophils 3.47 10x3/uL (1.5-8.4); %Basophils 0.9 % (0.0-2.0); %Eosinophils 5.8 % (0.0-6.0); %Lymphocytes 24.4 % (18.0-47.0); %Monocytes 6.7 % (0.0-10.0); %Neutrophils 61.3 % (40.0-75.0); Hematocrit 30.9 % (38.8-50.0); Hemoglobin 9.8 g/dL (13.5-17.5); Mean Corpuscular HGB CONC 31.7 g/dL (32.0-36.0); Mean Corpuscular Hemoglobin 25.6 pg (27.0-33.0); Mean Corpuscular Volume 80.7 fL (81.2-95.1); Platelet Count 450 10x3/uL (150-450); RBC Distribution Width 15.6 % (11.5-14.5); Red Blood Cell (RBC) Count 3.83 10x6/uL (4.32-5.72); White Blood Cell (WBC) Count 5.7 10x3/uL (3.5-10.5)
[2023-09-24 05:25] LABS: Anion Gap 16 mmol/L (10-20); BUN (Urea Nitrogen) 24 mg/dL (8.4-25.7); Calc. Creatinine Clearance 93 mL/min (70-130); Calcium 9.2 mg/dL (7.8-10.44); Carbon Dioxide 18 mmol/L (23-31); Chloride 110 mmol/L (98-107); Estimated GFR 47; Glucose 92 mg/dL (83-110); Sodium 139 mmol/L (136-145); Vancomycin, Random 17.1 ug/mL (See Comment)
[2023-09-24] MEDS: traZODone HCl 50 MG TAB PO SCH (21:14)
[2023-09-25 05:44] LABS: #Basophils 0.06 10x3/uL (0.0-0.2); #Eosinphils 0.32 10x3/uL (0.0-0.5); #Monocytes 0.48 10x3/uL (0.0-1.1); #Neutrophils 4.48 10x3/uL (1.5-8.4); %Basophils 0.9 % (0.0-2.0); %Eosinophils 4.6 % (0.0-6.0); %Lymphocytes 21.6 % (18.0-47.0); %Monocytes 6.9 % (0.0-10.0); %Neutrophils 64.8 % (40.0-75.0); Hematocrit 28.8 % (38.8-50.0); Hemoglobin 9.5 g/dL (13.5-17.5); Mean Corpuscular Hemoglobin 26.3 pg (27.0-33.0); Mean Corpuscular Volume 79.8 fL (81.2-95.1); Mean Platelet Volume 9.2 fL (7.4-10.4); Platelet Count 470 10x3/uL (150-450); RBC Distribution Width 15.4 % (11.5-14.5); Red Blood Cell (RBC) Count 3.61 10x6/uL (4.32-5.72); White Blood Cell (WBC) Count 6.9 10x3/uL (3.5-10.5)
[2023-09-25 06:08] LABS: Anion Gap 15 mmol/L (10-20); BUN (Urea Nitrogen) 20 mg/dL (8.4-25.7); Calc. Creatinine Clearance 104 mL/min (70-130); Calcium 9.3 mg/dL (7.8-10.44); Carbon Dioxide 19 mmol/L (23-31); Chloride 108 mmol/L (98-107); Estimated GFR 54; Glucose 106 mg/dL (83-110); Potassium 4.6 mmol/L (3.5-5.1); Sodium 137 mmol/L (136-145)
[2023-09-25] MEDS: Lidocaine 4% Patch TD SCH (10:27)
[2023-09-25] MEDS: Cholecalciferol 1,000 UNITS (25 MCG) TAB PO SCH (10:28)
[2023-09-25] MEDS: Famotidine 20 MG TAB PO SCH (10:29)
[2023-09-25] MEDS: Transdermal Patch Removal - LIDOCAINE TOP SCH (21:16)
[2023-09-26 07:27] LABS: #Basophils 0.08 10x3/uL (0.0-0.2); #Eosinphils 0.27 10x3/uL (0.0-0.5); #Monocytes 0.52 10x3/uL (0.0-1.1); #Neutrophils 4.89 10x3/uL (1.5-8.4); %Eosinophils 3.5 % (0.0-6.0); %Lymphocytes 25.2 % (18.0-47.0); %Monocytes 6.7 % (0.0-10.0); %Neutrophils 62.7 % (40.0-75.0); Hematocrit 30.6 % (38.8-50.0); Hemoglobin 9.8 g/dL (13.5-17.5); Mean Corpuscular Hemoglobin 25.8 pg (27.0-33.0); Mean Corpuscular Volume 80.5 fL (81.2-95.1); Mean Platelet Volume 8.9 fL (7.4-10.4); Platelet Count 479 10x3/uL (150-450); RBC Distribution Width 15.7 % (11.5-14.5); White Blood Cell (WBC) Count 7.8 10x3/uL (3.5-10.5)
[2023-09-26 10:11] LABS: Anion Gap 13 mmol/L (10-20); BUN (Urea Nitrogen) 18 mg/dL (8.4-25.7); Calc. Creatinine Clearance 99 mL/min (70-130); Calcium 9.5 mg/dL (7.6-10.4); Carbon Dioxide 21 mmol/L (23-31); Chloride 108 mmol/L (98-107); Estimated GFR 51; Glucose 97 mg/dL (83-110); Potassium 4.9 mmol/L (3.5-5.1); Sodium 137 mmol/L (136-145)
[2023-09-27] MEDS: Vancomycin HCl 750 MG in Sodium Chloride 0.9% 250 ML 250 ML IVPB SCH (08:49)
[2023-09-28 07:29] VITALS: TEMP 97.4
[2023-09-28 12:05] VITALS: BP 126/60
== END 2023-09-28 12:00 | DRG 74 ==
LOC: CSHTELE 12:22
PROVIDERS: ADMIT Family Medicine; ATTEND Family Medicine
DX: E11.40 Type 2 diabetes mellitus with diabetic neuropathy, unspecified (principal); L03.115 Cellulitis of right lower limb; L03.116 Cellulitis of left lower limb; Z68.42 Body mass index [BMI] 45.0-49.9, adult; N17.9 Acute kidney failure, unspecified; E11.628 Type 2 diabetes mellitus with other skin complications; I87.2 Venous insufficiency (chronic) (peripheral); E87.5 Hyperkalemia; N18.9 Chronic kidney disease, unspecified; E66.01 Morbid (severe) obesity due to excess calories; E11.22 Type 2 diabetes mellitus with diabetic chronic kidney disease; I12.9 Hypertensive chronic kidney disease with stage 1 through stage 4 chronic kidney disease, or unspecified chronic kidney disease; E03.9 Hypothyroidism, unspecified; L30.4 Erythema intertrigo; D72.829 Elevated white blood cell count, unspecified; B96.5 Pseudomonas (aeruginosa) (mallei) (pseudomallei) as the cause of diseases classified elsewhere; E11.51 Type 2 diabetes mellitus with diabetic peripheral angiopathy without gangrene; E78.5 Hyperlipidemia, unspecified; Z79.899 Other long term (current) drug therapy; Z79.890 Hormone replacement therapy; Z79.4 Long term (current) use of insulin; Z99.3 Dependence on wheelchair; Z87.891 Personal history of nicotine dependence
CPT/HCPCS: 36415; 36416; 76770; 80048; 80202; 81001; 85025; 86140; 86141; 87070; 87077; 87186; 87205; 97139; J0692; J1650; J1815; J2543; J3370; J3490; J7050

== ENCOUNTER 2023-10-12 12:24 | Outpatient (CLI) | payer MEDICARE, MEDICAID | END 2023-10-12 12:25 | disposition home or self-care (01) | LOC: CSHWCC 12:24 | PROVIDERS: ATTEND Nurse Practitioner Family | DX: I87.313 Chronic venous hypertension (idiopathic) with ulcer of bilateral lower extremity (principal); E11.622 Type 2 diabetes mellitus with other skin ulcer; L97.312 Non-pressure chronic ulcer of right ankle with fat layer exposed; L97.322 Non-pressure chronic ulcer of left ankle with fat layer exposed; L03.116 Cellulitis of left lower limb; E11.42 Type 2 diabetes mellitus with diabetic polyneuropathy; B91 Sequelae of poliomyelitis | CPT/HCPCS: 11042; 11045 ==

== ENCOUNTER 2023-10-19 10:32 | Outpatient (CLI) | payer MEDICARE, MEDICAID | END 2023-10-19 10:33 | disposition home or self-care (01) | LOC: CSHWCC 10:32 | PROVIDERS: ATTEND Nurse Practitioner Family | DX: I87.313 Chronic venous hypertension (idiopathic) with ulcer of bilateral lower extremity (principal); L97.312 Non-pressure chronic ulcer of right ankle with fat layer exposed; L97.322 Non-pressure chronic ulcer of left ankle with fat layer exposed; L03.116 Cellulitis of left lower limb; E11.42 Type 2 diabetes mellitus with diabetic polyneuropathy; B91 Sequelae of poliomyelitis | CPT/HCPCS: 11042; 11045 ==

== ENCOUNTER 2023-11-02 10:14 | Outpatient (CLI) | payer MEDICARE, MEDICAID | END 2023-11-02 10:15 | disposition home or self-care (01) | LOC: CSHWCC 10:14 | PROVIDERS: ATTEND Nurse Practitioner Family | DX: I87.313 Chronic venous hypertension (idiopathic) with ulcer of bilateral lower extremity (principal); E11.42 Type 2 diabetes mellitus with diabetic polyneuropathy; E11.621 Type 2 diabetes mellitus with foot ulcer; L97.312 Non-pressure chronic ulcer of right ankle with fat layer exposed; L97.322 Non-pressure chronic ulcer of left ankle with fat layer exposed; L03.116 Cellulitis of left lower limb; B91 Sequelae of poliomyelitis; E11.622 Type 2 diabetes mellitus with other skin ulcer | CPT/HCPCS: 11042; 11045 ==

== ENCOUNTER 2023-11-09 10:03 | Outpatient (CLI) | payer MEDICARE, MEDICAID | END 2023-11-09 10:04 | disposition home or self-care (01) | LOC: CSHWCC 10:03 | PROVIDERS: ATTEND Nurse Practitioner Family | DX: I87.313 Chronic venous hypertension (idiopathic) with ulcer of bilateral lower extremity (principal); E11.42 Type 2 diabetes mellitus with diabetic polyneuropathy; E11.622 Type 2 diabetes mellitus with other skin ulcer; L97.322 Non-pressure chronic ulcer of left ankle with fat layer exposed; L97.319 Non-pressure chronic ulcer of right ankle with unspecified severity; L03.116 Cellulitis of left lower limb; B91 Sequelae of poliomyelitis | CPT/HCPCS: 11042; 11045 ==

== ENCOUNTER 2024-01-04 13:06 | Outpatient (CLI) | payer MEDICARE, MEDICAID | END 2024-01-04 13:07 | disposition home or self-care (01) | LOC: CSHWCC 13:06 | PROVIDERS: ATTEND Nurse Practitioner Family | DX: I87.313 Chronic venous hypertension (idiopathic) with ulcer of bilateral lower extremity (principal); L97.322 Non-pressure chronic ulcer of left ankle with fat layer exposed; L03.116 Cellulitis of left lower limb; E11.42 Type 2 diabetes mellitus with diabetic polyneuropathy; B91 Sequelae of poliomyelitis | CPT/HCPCS: 11042 ==

== ENCOUNTER 2024-01-11 10:53 | Outpatient (CLI) | payer MEDICARE, MEDICAID | END 2024-01-11 10:54 | disposition home or self-care (01) | LOC: CSHWCC 10:53 | PROVIDERS: ATTEND Nurse Practitioner Family | DX: I87.313 Chronic venous hypertension (idiopathic) with ulcer of bilateral lower extremity (principal); L97.322 Non-pressure chronic ulcer of left ankle with fat layer exposed; L03.116 Cellulitis of left lower limb; E11.42 Type 2 diabetes mellitus with diabetic polyneuropathy; B91 Sequelae of poliomyelitis | CPT/HCPCS: 11042; 11045; 87070; 87077; 87205 ==

== ENCOUNTER 2024-01-18 09:52 | Outpatient (CLI) | payer MEDICARE, MEDICAID | END 2024-01-18 09:53 | disposition home or self-care (01) | LOC: CSHWCC 09:52 | PROVIDERS: ATTEND Nurse Practitioner Family | DX: I87.313 Chronic venous hypertension (idiopathic) with ulcer of bilateral lower extremity (principal); E11.622 Type 2 diabetes mellitus with other skin ulcer; L97.322 Non-pressure chronic ulcer of left ankle with fat layer exposed; L97.919 Non-pressure chronic ulcer of unspecified part of right lower leg with unspecified severity; E11.42 Type 2 diabetes mellitus with diabetic polyneuropathy; B91 Sequelae of poliomyelitis; L03.116 Cellulitis of left lower limb; L08.9 Local infection of the skin and subcutaneous tissue, unspecified | CPT/HCPCS: 11042 ==

== ENCOUNTER 2024-01-25 12:50 | Outpatient (CLI) | payer MEDICARE, MEDICAID | END 2024-01-25 12:51 | disposition home or self-care (01) | LOC: CSHWCC 12:50 | PROVIDERS: ATTEND Nurse Practitioner Family | DX: I87.313 Chronic venous hypertension (idiopathic) with ulcer of bilateral lower extremity (principal); L97.322 Non-pressure chronic ulcer of left ankle with fat layer exposed; L97.919 Non-pressure chronic ulcer of unspecified part of right lower leg with unspecified severity; L03.116 Cellulitis of left lower limb; L08.9 Local infection of the skin and subcutaneous tissue, unspecified; B91 Sequelae of poliomyelitis | CPT/HCPCS: 11042; 11045 ==

== ENCOUNTER 2024-02-01 10:01 | Outpatient (CLI) | payer MEDICARE, MEDICAID | END 2024-02-01 10:02 | disposition home or self-care (01) | LOC: CSHWCC 10:01 | PROVIDERS: ATTEND Nurse Practitioner Family | DX: I87.313 Chronic venous hypertension (idiopathic) with ulcer of bilateral lower extremity (principal); L97.322 Non-pressure chronic ulcer of left ankle with fat layer exposed; L03.116 Cellulitis of left lower limb; E11.42 Type 2 diabetes mellitus with diabetic polyneuropathy; B91 Sequelae of poliomyelitis; L08.9 Local infection of the skin and subcutaneous tissue, unspecified | CPT/HCPCS: 11042; 11045; G0463; 99215 ==

== ENCOUNTER 2024-02-08 09:48 | Outpatient (CLI) | payer MEDICARE, MEDICAID | END 2024-02-08 09:49 | disposition home or self-care (01) | LOC: CSHWCC 09:48 | PROVIDERS: ATTEND Nurse Practitioner Family | DX: I87.313 Chronic venous hypertension (idiopathic) with ulcer of bilateral lower extremity (principal); L97.322 Non-pressure chronic ulcer of left ankle with fat layer exposed; E11.42 Type 2 diabetes mellitus with diabetic polyneuropathy; L03.116 Cellulitis of left lower limb; L08.9 Local infection of the skin and subcutaneous tissue, unspecified; B91 Sequelae of poliomyelitis | CPT/HCPCS: 11042; G0463; 99213 ==

== ENCOUNTER 2024-02-17 08:57 | Outpatient (CLI) | payer MEDICARE, MEDICAID | END 2024-02-17 08:58 | disposition home or self-care (01) | LOC: CSHWCC 08:57 | PROVIDERS: ATTEND Nurse Practitioner Family | DX: E11.622 Type 2 diabetes mellitus with other skin ulcer (principal); I87.313 Chronic venous hypertension (idiopathic) with ulcer of bilateral lower extremity; E11.42 Type 2 diabetes mellitus with diabetic polyneuropathy; L03.116 Cellulitis of left lower limb; L97.322 Non-pressure chronic ulcer of left ankle with fat layer exposed; B91 Sequelae of poliomyelitis; L08.9 Local infection of the skin and subcutaneous tissue, unspecified | CPT/HCPCS: 11042; 11045; G0463; 99212 ==

== ENCOUNTER 2024-02-22 14:04 | Outpatient (CLI) | payer MEDICARE, MEDICAID | END 2024-02-22 14:05 | disposition home or self-care (01) | LOC: CSHWCC 14:04 | PROVIDERS: ATTEND Nurse Practitioner Family | DX: I87.313 Chronic venous hypertension (idiopathic) with ulcer of bilateral lower extremity (principal); E11.622 Type 2 diabetes mellitus with other skin ulcer; L97.322 Non-pressure chronic ulcer of left ankle with fat layer exposed; L97.919 Non-pressure chronic ulcer of unspecified part of right lower leg with unspecified severity; B91 Sequelae of poliomyelitis; L03.116 Cellulitis of left lower limb; L08.9 Local infection of the skin and subcutaneous tissue, unspecified | CPT/HCPCS: 11042; 11045 ==

== ENCOUNTER 2024-02-29 14:06 | Outpatient (CLI) | payer MEDICARE, MEDICAID | END 2024-02-29 14:07 | disposition home or self-care (01) | LOC: CSHWCC 14:06 | PROVIDERS: ATTEND Nurse Practitioner Family | DX: E11.622 Type 2 diabetes mellitus with other skin ulcer (principal); I87.313 Chronic venous hypertension (idiopathic) with ulcer of bilateral lower extremity; L97.522 Non-pressure chronic ulcer of other part of left foot with fat layer exposed; L97.322 Non-pressure chronic ulcer of left ankle with fat layer exposed; E11.42 Type 2 diabetes mellitus with diabetic polyneuropathy; L03.116 Cellulitis of left lower limb; B91 Sequelae of poliomyelitis | CPT/HCPCS: 11042 ==

== ENCOUNTER 2024-03-14 15:33 | Outpatient (CLI) | payer MEDICARE, MEDICAID | END 2024-03-14 15:34 | disposition home or self-care (01) | LOC: CSHWCC 15:33 | PROVIDERS: ATTEND Nurse Practitioner Family | DX: I87.313 Chronic venous hypertension (idiopathic) with ulcer of bilateral lower extremity (principal); L97.522 Non-pressure chronic ulcer of other part of left foot with fat layer exposed; L97.322 Non-pressure chronic ulcer of left ankle with fat layer exposed; B91 Sequelae of poliomyelitis; E11.42 Type 2 diabetes mellitus with diabetic polyneuropathy; L03.116 Cellulitis of left lower limb | CPT/HCPCS: 11042; 11045 ==

== ENCOUNTER 2024-03-21 14:37 | Outpatient (CLI) | payer MEDICARE, MEDICAID | END 2024-03-21 14:38 | disposition home or self-care (01) | LOC: CSHWCC 14:37 | PROVIDERS: ATTEND Nurse Practitioner Family | DX: E11.621 Type 2 diabetes mellitus with foot ulcer (principal); I87.313 Chronic venous hypertension (idiopathic) with ulcer of bilateral lower extremity; L97.522 Non-pressure chronic ulcer of other part of left foot with fat layer exposed; L97.322 Non-pressure chronic ulcer of left ankle with fat layer exposed; E11.42 Type 2 diabetes mellitus with diabetic polyneuropathy; L03.116 Cellulitis of left lower limb; B91 Sequelae of poliomyelitis | CPT/HCPCS: 11042; 11045 ==

== ENCOUNTER 2024-03-28 08:21 | Outpatient (CLI) | payer MEDICARE, MEDICAID | END 2024-03-28 08:22 | disposition home or self-care (01) | LOC: CSHWCC 08:21 | PROVIDERS: ATTEND Nurse Practitioner Family | DX: I87.313 Chronic venous hypertension (idiopathic) with ulcer of bilateral lower extremity (principal); E11.621 Type 2 diabetes mellitus with foot ulcer; E11.42 Type 2 diabetes mellitus with diabetic polyneuropathy; L97.522 Non-pressure chronic ulcer of other part of left foot with fat layer exposed; L97.322 Non-pressure chronic ulcer of left ankle with fat layer exposed; B91 Sequelae of poliomyelitis; L03.116 Cellulitis of left lower limb | CPT/HCPCS: 11042; 11045 ==

== ENCOUNTER 2024-04-13 08:37 | Outpatient (CLI) | payer MEDICARE, MEDICAID | END 2024-04-13 08:38 | disposition home or self-care (01) | LOC: CSHWCC 08:37 | PROVIDERS: ATTEND Nurse Practitioner Family | DX: E11.621 Type 2 diabetes mellitus with foot ulcer (principal); I87.313 Chronic venous hypertension (idiopathic) with ulcer of bilateral lower extremity; L97.522 Non-pressure chronic ulcer of other part of left foot with fat layer exposed; L97.322 Non-pressure chronic ulcer of left ankle with fat layer exposed; E11.42 Type 2 diabetes mellitus with diabetic polyneuropathy; L03.116 Cellulitis of left lower limb; B91 Sequelae of poliomyelitis | CPT/HCPCS: 11042 ==

== ENCOUNTER 2024-04-25 08:41 | Outpatient (CLI) | payer MEDICARE, MEDICAID | END 2024-04-25 08:42 | disposition home or self-care (01) | LOC: CSHWCC 08:41 | PROVIDERS: ATTEND Nurse Practitioner Family | DX: I87.313 Chronic venous hypertension (idiopathic) with ulcer of bilateral lower extremity (principal); E11.621 Type 2 diabetes mellitus with foot ulcer; L97.522 Non-pressure chronic ulcer of other part of left foot with fat layer exposed; E11.622 Type 2 diabetes mellitus with other skin ulcer; L97.322 Non-pressure chronic ulcer of left ankle with fat layer exposed; L97.919 Non-pressure chronic ulcer of unspecified part of right lower leg with unspecified severity; B91 Sequelae of poliomyelitis; E11.42 Type 2 diabetes mellitus with diabetic polyneuropathy; L03.116 Cellulitis of left lower limb | CPT/HCPCS: 11042; 97597; 99213; G0463 ==

== ENCOUNTER 2024-05-17 14:10 | Outpatient (CLI) | payer MEDICARE, MEDICAID | END 2024-05-17 14:11 | disposition home or self-care (01) | LOC: CSHWCC 14:10 | PROVIDERS: ATTEND Nurse Practitioner Family | DX: I87.313 Chronic venous hypertension (idiopathic) with ulcer of bilateral lower extremity (principal); E11.621 Type 2 diabetes mellitus with foot ulcer; L97.522 Non-pressure chronic ulcer of other part of left foot with fat layer exposed; E11.622 Type 2 diabetes mellitus with other skin ulcer; L97.322 Non-pressure chronic ulcer of left ankle with fat layer exposed; L97.212 Non-pressure chronic ulcer of right calf with fat layer exposed; E11.42 Type 2 diabetes mellitus with diabetic polyneuropathy; B91 Sequelae of poliomyelitis | CPT/HCPCS: 11042 ==

== ENCOUNTER 2024-05-29 14:05 | Outpatient (CLI) | payer MEDICARE, MEDICAID | END 2024-05-29 14:06 | disposition home or self-care (01) | LOC: CSHWCC 14:05 | PROVIDERS: ATTEND Nurse Practitioner Family | DX: I87.313 Chronic venous hypertension (idiopathic) with ulcer of bilateral lower extremity (principal); L97.522 Non-pressure chronic ulcer of other part of left foot with fat layer exposed; L97.322 Non-pressure chronic ulcer of left ankle with fat layer exposed; L97.212 Non-pressure chronic ulcer of right calf with fat layer exposed; E11.42 Type 2 diabetes mellitus with diabetic polyneuropathy; B91 Sequelae of poliomyelitis | CPT/HCPCS: 11042 ==